=== PATIENT | female | born 1960 | race African-American/Black ===

== ENCOUNTER 2017-10-09 16:20 | Inpatient (IN) ==
[2017-10-09] MEDS ORDERED: SODIUM BICARB INJ 100 MEQ in STERILE WATER INJ 400 ML IV PRN (18:14)
[2017-10-09] MEDS ORDERED: SODIUM PHOSPHATE IV PRN (18:14)
[2017-10-09] MEDS ORDERED: SODIUM CHLORIDE 0.9% IV PRN (18:14)
[2017-10-09] MEDS ORDERED: DEXTROSE 50% 25 GM/50 ML VIAL IV PRN ×2 (18:14)
[2017-10-09] MEDS ORDERED: PNEUMOCOCCAL VACCINE (13 VALENT) 0.5 ML SYRINGE IM ONE (18:19)
[2017-10-09] MEDS ORDERED: LACTULOSE 20 GM/30 ML UDCUP PO PRN (18:20)
[2017-10-09] MEDS ORDERED: MAGNESIUM SULF RIDER 2 GM in PREMIX 1 EACH IV PRN (18:20)
[2017-10-09] MEDS ORDERED: MAGNESIUM SULF RIDER 4 GM in PREMIX 1 EACH IV PRN (18:20)
[2017-10-09] MEDS ORDERED: DOCUSATE SODIUM 100 MG CAPSULE PO PRN (18:20)
[2017-10-09] MEDS ORDERED: GLUCAGON 1 MG VIAL IM PRN (18:20)
[2017-10-09] MEDS ORDERED: INSULIN REGULAR DRIP 100 ML IV SCH (18:30)
[2017-10-09 18:53] LABS: Allen Test Positive
[2017-10-09 18:54] LABS: ABG Base Excess -8.7 MMOL/L (-2.5-2.5); ABG HCO3 17.4 MMOL/L (20-26); ABG Oxygen Saturation 99.6 % (95-100); ABG PH 7.339 (7.35-7.45)
[2017-10-09 18:55] LABS: Basophils % 0.2 % (0.0-0.8); Hematocrit 28.5 VOL% (35.7-47.0); Hemoglobin 8.7 GM/DL (12.0-16.0); Immature Granulocytes % 0.7 %; Immature Granulocytes Absolute 0.14 #; Lymphocytes # 1.2 10*3/uL (1.4-4.0); Lymphocytes % 6.3 % (21.3-54.2); Mean Corpuscular HGB Conc 30.5 GM/DL (32-36); Mean Corpuscular Hemoglobin 24 PG (27-34); Mean Corpuscular Volume 79.8 FL (87-102); Mean Platelet Volume 10.9 FL (9.6-12.0); Monocytes # 0.9 10*3/uL (0.11-0.8); Monocytes % 4.7 % (1.7-12.7); Neutrophils # 17.3 10*3/uL (1.4-7.4); Neutrophils % 88.1 % (38.7-73.9); Platelet Count 466 T/CUMM (130-400); Red Blood Count 3.57 MC/CUMM (3.8-5.5); Red Cell Distribution Width 19.2 % (9.3-17.3); White Blood Count 19.6 T/CUMM (4-12)
[2017-10-09 19:17] LABS: Calcium 8.2 MG/DL (8.5-10.1); Osmolality,Calculated 336.1 MOS/KG (273-304); Potassium 3.4 MMOL/L (3.5-5.1)
[2017-10-09 19:26] LABS: Bilirubin,Total 0.4 MG/DL (0.2-1.0); Calcium 8.3 MG/DL (8.5-10.1); Potassium 3.4 MMOL/L (3.5-5.1); Thyroid Stimulating Hormone 1.19 uIU/ml (0.358-3.74); Total Protein 6.9 G/DL (6.4-8.3)
[2017-10-09] MEDS ORDERED: hydrALAZINE 20 MG/1 ML VIAL IV PRN (19:26)
[2017-10-09 19:30] LABS: Osmolality,Calculated 339.8 MOS/KG (273-304)
[2017-10-09 19:36] LABS: Apearance,Urine Slightly Hazy (Clear); Bacteria,Urine Occasional /HPF (Few); Bilirubin,Urine Negative (Negative); Blood, Urine Negative (Negative); Glucose,Urine (UA) >=500 mg/dL (Negative); Ketones,Urine 20 mg/dL (Negative); Mucus,Urine Occasional /LPF (Occasional); Nitrite,Urine Negative (Negative); Protein,Urine Negative; Urine Color Yellow (Yellow); Urine Urobilinogen < 2.0 EU/DL (0.2-1.0); WBC,Urine 2 /HPF (0-6)
[2017-10-09] MEDS: PANTOPRAZOLE 40 MG VIAL IV SCH (20:32)
[2017-10-09] MEDS: INSULIN LISPRO 100 UNIT/ML SUBCUT SCH (20:32)
[2017-10-09 22:55] LABS: Calcium 8.1 MG/DL (8.5-10.1); Osmolality,Calculated 331.5 MOS/KG (273-304); Potassium 3.6 MMOL/L (3.5-5.1)
[2017-10-09] MEDS ORDERED: INSULIN REGULAR 100 UNIT/ML IV ONE (23:30)
[2017-10-10 02:29] LABS: Calcium 8.5 MG/DL (8.5-10.1); Osmolality,Calculated 325.6 MOS/KG (273-304); Potassium 3.3 MMOL/L (3.5-5.1)
[2017-10-10] MEDS ORDERED: INSULIN REGULAR 100 UNIT/ML IV ONE (03:00)
[2017-10-10] MEDS: POTASSIUM CHLORIDE RIDER 10 MEQ in PREMIX 1 EACH IV PRN ×4 (03:26→06:19)
[2017-10-10 05:31] LABS: Basophils % 0.2 % (0.0-0.8); Hematocrit 28.3 VOL% (35.7-47.0); Hemoglobin 9.3 GM/DL (12.0-16.0); Immature Granulocytes % 0.9 %; Immature Granulocytes Absolute 0.19 #; Lymphocytes # 0.8 10*3/uL (1.4-4.0); Lymphocytes % 3.7 % (21.3-54.2); Mean Corpuscular HGB Conc 32.9 GM/DL (32-36); Mean Corpuscular Hemoglobin 25 PG (27-34); Mean Corpuscular Volume 75.3 FL (87-102); Mean Platelet Volume 10.9 FL (9.6-12.0); Monocytes # 2.3 10*3/uL (0.11-0.8); Monocytes % 10.5 % (1.7-12.7); Neutrophils # 18.9 10*3/uL (1.4-7.4); Neutrophils % 84.7 % (38.7-73.9); Platelet Count 461 T/CUMM (130-400); Red Blood Count 3.76 MC/CUMM (3.8-5.5); Red Cell Distribution Width 18.7 % (9.3-17.3); White Blood Count 22.3 T/CUMM (4-12)
[2017-10-10 05:53] LABS: Risk Ratio 2.06; VLDL CHOLESTEROL 23.8 MG/DL
[2017-10-10 06:09] LABS: Band Neutrophils 2 % (0-10); Lymphocytes 3 % (20-55); Segmented Neutrophils 86 % (50-85); Total Cells Counted 100
[2017-10-10 06:10] LABS: Hypochromasia 1+
[2017-10-10 06:11] LABS: Microcytosis 1+; Platelet Estimate Increased; Target Cells Slight
[2017-10-10 07:09] LABS: Calcium 8.5 MG/DL (8.5-10.1); Osmolality,Calculated 315.4 MOS/KG (273-304); Potassium 3.7 MMOL/L (3.5-5.1)
[2017-10-10] MEDS: SODIUM CHLORIDE 0.9% 1,000 ML IV SCH ×3 (07:42→21:52)
[2017-10-10] MEDS: glipiZIDE 10 MG TABLET PO SCH ×2 (08:25→16:47)
[2017-10-10] MEDS: INSULIN LISPRO 100 UNIT/ML SUBCUT SCH ×6 (08:25→23:20)
[2017-10-10] MEDS: PANTOPRAZOLE 40 MG VIAL IV SCH ×2 (08:26→21:52)
[2017-10-10] MEDS ORDERED: PANTOPRAZOLE 40 MG TABLET PO SCH (09:00)
[2017-10-10] MEDS ORDERED: SODIUM CHLORIDE 0.45% 1,000 ML IV SCH (11:15)
[2017-10-10] MEDS: ONDANSETRON 4 MG/2 ML VIAL IV PRN (14:36)
[2017-10-10] MEDS: ACETAMINOPHEN 325 MG TABLET PO PRN (21:52)
[2017-10-11] MEDS: INSULIN LISPRO 100 UNIT/ML SUBCUT SCH ×6 (03:30→20:51)
[2017-10-11 05:15] LABS: Basophils % 0.1 % (0.0-0.8); Eosinophils % 0.1 % (0.00-10.9); Hematocrit 25.6 VOL% (35.7-47.0); Hemoglobin 7.9 GM/DL (12.0-16.0); Immature Granulocytes % 0.5 %; Immature Granulocytes Absolute 0.05 #; Lymphocytes # 1.4 10*3/uL (1.4-4.0); Lymphocytes % 12.4 % (21.3-54.2); Mean Corpuscular HGB Conc 30.9 GM/DL (32-36); Mean Corpuscular Hemoglobin 24 PG (27-34); Mean Corpuscular Volume 78.8 FL (87-102); Monocytes # 0.7 10*3/uL (0.11-0.8); Monocytes % 6.6 % (1.7-12.7); NRBC # 0.02 10*3/uL; Neutrophils # 8.8 10*3/uL (1.4-7.4); Neutrophils % 80.3 % (38.7-73.9); Platelet Count 336 T/CUMM (130-400); Red Blood Count 3.25 MC/CUMM (3.8-5.5); Red Cell Distribution Width 18.7 % (9.3-17.3)
[2017-10-11 05:39] LABS: Calcium 8.1 MG/DL (8.5-10.1); Osmolality,Calculated 299.4 MOS/KG (273-304); Potassium 3.3 MMOL/L (3.5-5.1)
[2017-10-11] MEDS: SODIUM CHLORIDE 0.9% 1,000 ML IV SCH ×3 (05:40→14:15)
[2017-10-11 05:44] LABS: Troponin I Only 0.055 NG/ML (0.00-0.045)
[2017-10-11 06:14] LABS: Microcytosis 1+; Platelet Estimate Normal
[2017-10-11] MEDS: ONDANSETRON 4 MG/2 ML VIAL IV PRN ×2 (06:35→09:57)
[2017-10-11] MEDS ORDERED: ASPIRIN 325 MG TABLET ONE (08:23)
[2017-10-11] MEDS ORDERED: NITROGLYCERIN SL 0.4 MG TABLET SL PRN (08:23)
[2017-10-11] MEDS ORDERED: ASPIRIN CHEW 81 MG TABLET PO ONE (08:23)
[2017-10-11] MEDS ORDERED: NITROGLYCERIN SL 0.4 MG TABLET SL ONE (08:23)
[2017-10-11] MEDS ORDERED: MORPHINE 4 MG/1 ML VIAL IV ONE (08:29)
[2017-10-11 08:46] LABS: Basophils % 0.2 % (0.0-0.8); Eosinophils % 0.1 % (0.00-10.9); Hematocrit 26.8 VOL% (35.7-47.0); Hemoglobin 8.2 GM/DL (12.0-16.0); Immature Granulocytes % 0.5 %; Immature Granulocytes Absolute 0.06 #; Lymphocytes # 1.4 10*3/uL (1.4-4.0); Lymphocytes % 10.9 % (21.3-54.2); Mean Corpuscular HGB Conc 30.6 GM/DL (32-36); Mean Corpuscular Hemoglobin 25 PG (27-34); Mean Corpuscular Volume 80.5 FL (87-102); Mean Platelet Volume 10.3 FL (9.6-12.0); Monocytes # 0.9 10*3/uL (0.11-0.8); Monocytes % 6.6 % (1.7-12.7); Neutrophils # 10.5 10*3/uL (1.4-7.4); Neutrophils % 81.7 % (38.7-73.9); Platelet Count 341 T/CUMM (130-400); Red Blood Count 3.33 MC/CUMM (3.8-5.5); Red Cell Distribution Width 18.9 % (9.3-17.3); White Blood Count 12.8 T/CUMM (4-12)
[2017-10-11 09:13] LABS: Band Neutrophils 3 % (0-10); Hypochromasia 1+; Lymphocytes 14 % (20-55); Segmented Neutrophils 76 % (50-85); Total Cells Counted 100
[2017-10-11 09:14] LABS: Microcytosis 1+; Platelet Estimate Normal
[2017-10-11 09:16] LABS: Albumin 2.4 G/DL (3.4-5.0); Bilirubin,Total 0.4 MG/DL (0.2-1.0); Calcium 8.1 MG/DL (8.5-10.1); Osmolality,Calculated 294.4 MOS/KG (273-304); Potassium 3.4 MMOL/L (3.5-5.1); Total Protein 6.1 G/DL (6.4-8.3)
[2017-10-11 09:50] LABS: Troponin I Only 0.05 NG/ML (0.00-0.045)
[2017-10-11] MEDS: glipiZIDE 10 MG TABLET PO SCH ×2 (09:57→16:36)
[2017-10-11] MEDS: POTASSIUM CHLORIDE 20 MEQ TABLET PO SCH ×3 (09:58→16:36)
[2017-10-11] MEDS: PANTOPRAZOLE 40 MG VIAL IV SCH (09:59)
[2017-10-11] MEDS: POTASSIUM CHLORIDE RIDER 10 MEQ in PREMIX 1 EACH IV PRN ×3 (10:05→12:57)
[2017-10-11] MEDS: ALUMINUM/MAGNES/SIMETH MAX STR 30 ML UDCUP PO SCH ×3 (14:06→20:50)
[2017-10-11] MEDS: PANTOPRAZOLE 40 MG TABLET PO SCH ×2 (14:06→20:50)
[2017-10-11] MEDS: ACETAMINOPHEN 325 MG TABLET PO PRN (18:42)
[2017-10-12] MEDS: INSULIN LISPRO 100 UNIT/ML SUBCUT SCH ×5 (00:07→23:31)
[2017-10-12] MEDS: ALUMINUM/MAGNES/SIMETH MAX STR 30 ML UDCUP PO SCH (00:07)
[2017-10-12 05:45] LABS: Calcium 8.4 MG/DL (8.5-10.1); Osmolality,Calculated 286.6 MOS/KG (273-304); Potassium 4.4 MMOL/L (3.5-5.1); Troponin I Only 0.024 NG/ML (0.00-0.045)
[2017-10-12] MEDS: SODIUM CHLORIDE 0.9% 1,000 ML IV SCH ×2 (07:40→21:30)
[2017-10-12] MEDS: PANTOPRAZOLE 40 MG TABLET PO SCH (08:36)
[2017-10-12] MEDS: glipiZIDE 10 MG TABLET PO SCH ×2 (08:36→16:29)
[2017-10-12] MEDS ORDERED: IBUPROFEN 100 MG/5 ML UDCUP PO SCH (09:00)
[2017-10-12] MEDS ORDERED: hydroCHLOROthiazide 25 MG TABLET PO SCH (09:00)
[2017-10-12] MEDS ORDERED: ACETAMINOPHEN 325 MG TABLET PO PRN (09:22)
[2017-10-12] MEDS ORDERED: ALUM/MAG/SIMETH/LIDO VISC 1:1 30 ML BOTTLE PO ONE (09:27)
[2017-10-12] MEDS ORDERED: IBUPROFEN 100 MG/5 ML UDCUP PO ONE (10:00)
[2017-10-12 13:17] LABS: Barbiturates Screen,Urine Negative (Negative); Benzodiazepines Screen,Urine Negative (Negative); Cannabinoid Screen,Urine Negative (Negative); Opiate Screen,Urine Negative (Negative); Phencyclidine Screen,Urine Negative (Negative)
[2017-10-12] MEDS: INSULIN GLARGINE 100 UNIT/ML SUBCUT SCH (13:24)
[2017-10-12] MEDS: amLODIPine 5 MG TABLET PO SCH (13:25)
[2017-10-12] MEDS ORDERED: LOPERAMIDE 2 MG CAPSULE PO ONE (18:46)
[2017-10-12] MEDS ORDERED: PANTOPRAZOLE 40 MG VIAL IV SCH (21:00)
[2017-10-12] MEDS: ALUM/MAG/SIMETH/LIDO VISC 1:1 30 ML BOTTLE PO PRN (23:37)
[2017-10-13] MEDS ORDERED: ZALEPLON 5 MG CAPSULE PO PRN (00:39)
[2017-10-13 09:55] LABS: Basophils % 0.2 % (0.0-0.8); Eosinophils # 0.1 10*3/uL (0.0-0.87); Eosinophils % 1.6 % (0.00-10.9); Hemoglobin 8.6 GM/DL (12.0-16.0); Immature Granulocytes % 0.2 %; Immature Granulocytes Absolute 0.02 #; Lymphocytes # 1.6 10*3/uL (1.4-4.0); Lymphocytes % 18.2 % (21.3-54.2); Mean Corpuscular HGB Conc 29.7 GM/DL (32-36); Mean Corpuscular Hemoglobin 24 PG (27-34); Mean Corpuscular Volume 81.9 FL (87-102); Mean Platelet Volume 11.1 FL (9.6-12.0); Monocytes # 0.4 10*3/uL (0.11-0.8); Monocytes % 4.9 % (1.7-12.7); Neutrophils # 6.5 10*3/uL (1.4-7.4); Neutrophils % 74.9 % (38.7-73.9); Platelet Count 372 T/CUMM (130-400); Red Blood Count 3.54 MC/CUMM (3.8-5.5); Red Cell Distribution Width 18.9 % (9.3-17.3); White Blood Count 8.6 T/CUMM (4-12)
[2017-10-13] MEDS: ONDANSETRON 4 MG/2 ML VIAL IV PRN ×2 (10:01→16:24)
[2017-10-13] MEDS: INSULIN LISPRO 100 UNIT/ML SUBCUT SCH ×4 (10:03→22:41)
[2017-10-13] MEDS: INSULIN GLARGINE 100 UNIT/ML SUBCUT SCH (10:03)
[2017-10-13] MEDS: amLODIPine 5 MG TABLET PO SCH (10:03)
[2017-10-13] MEDS: glipiZIDE 10 MG TABLET PO SCH ×2 (10:03→16:24)
[2017-10-13 10:30] LABS: Alanine Aminotransferase 40 U/L (13-56); Albumin 2.5 G/DL (3.4-5.0); Alkaline Phosphatase 95 U/L (45-117); Aspartate Amino Transferase 40 U/L (0-37); Bilirubin,Total < 0.39 MG/DL (0.2-1.0); Blood Urea Nitrogen 11 MG/DL (7-18); Glucose 147 MG/DL (74-106); Osmolality,Calculated 282.3 MOS/KG (273-304); Potassium 4.4 MMOL/L (3.5-5.1); Sodium 141 MMOL/L (136-145); Total Protein 6.7 G/DL (6.4-8.3)
[2017-10-13 10:47] LABS: Band Neutrophils 1 % (0-10); Eosinophils 2 % (0-10); Lymphocytes 12 % (20-55); Segmented Neutrophils 83 % (50-85); Total Cells Counted 100
[2017-10-13 10:48] LABS: Giant Platelets Few; Hypochromasia 2+; Microcytosis 1+; Platelet Estimate Normal
[2017-10-13] MEDS ORDERED: ASPIRIN CHEW 81 MG TABLET PO ONE (12:02)
[2017-10-13] MEDS: ALUM/MAG/SIMETH/LIDO VISC 1:1 30 ML BOTTLE PO PRN (12:06)
[2017-10-13] MEDS ORDERED: LIDOCAINE 100 MG/5 ML SYRINGE ONE (12:57)
[2017-10-13] MEDS ORDERED: PROPOFOL 200 MG/20 ML VIAL IV ONE (12:57)
[2017-10-13] MEDS: PANTOPRAZOLE 40 MG TABLET PO SCH (23:10)
[2017-10-14] MEDS: SODIUM CHLORIDE 0.9% 1,000 ML IV SCH (04:18)
[2017-10-14 05:17] LABS: Basophils % 0.1 % (0.0-0.8); Eosinophils # 0.1 10*3/uL (0.0-0.87); Eosinophils % 1.3 % (0.00-10.9); Hematocrit 24.8 VOL% (35.7-47.0); Hemoglobin 7.4 GM/DL (12.0-16.0); Immature Granulocytes % 0.3 %; Immature Granulocytes Absolute 0.03 #; Lymphocytes # 1.8 10*3/uL (1.4-4.0); Lymphocytes % 17.6 % (21.3-54.2); Mean Corpuscular HGB Conc 29.8 GM/DL (32-36); Mean Corpuscular Hemoglobin 24 PG (27-34); Mean Corpuscular Volume 81.3 FL (87-102); Mean Platelet Volume 10.9 FL (9.6-12.0); Monocytes # 0.7 10*3/uL (0.11-0.8); Monocytes % 6.6 % (1.7-12.7); Neutrophils # 7.7 10*3/uL (1.4-7.4); Neutrophils % 74.1 % (38.7-73.9); Platelet Count 331 T/CUMM (130-400); Red Blood Count 3.05 MC/CUMM (3.8-5.5); Red Cell Distribution Width 18.7 % (9.3-17.3); White Blood Count 10.3 T/CUMM (4-12)
[2017-10-14 05:41] LABS: Hypochromasia 1+; Microcytosis Slight; Ovalocytes Slight; Platelet Estimate Adequate
[2017-10-14 05:51] LABS: Albumin 2.2 G/DL (3.4-5.0); Bilirubin,Total 0.4 MG/DL (0.2-1.0); Calcium 8.3 MG/DL (8.5-10.1); Osmolality,Calculated 280.3 MOS/KG (273-304); Potassium 4.2 MMOL/L (3.5-5.1); Total Protein 5.7 G/DL (6.4-8.3)
[2017-10-14] MEDS: PANTOPRAZOLE 40 MG TABLET PO SCH (06:42)
[2017-10-14] MEDS: glipiZIDE 10 MG TABLET PO SCH ×2 (08:41→17:56)
[2017-10-14] MEDS: amLODIPine 5 MG TABLET PO SCH (08:41)
[2017-10-14] MEDS: INSULIN GLARGINE 100 UNIT/ML SUBCUT SCH (08:43)
[2017-10-14] MEDS: INSULIN LISPRO 100 UNIT/ML SUBCUT SCH ×4 (08:43→21:17)
[2017-10-14] MEDS: ONDANSETRON 4 MG/2 ML VIAL IV PRN ×3 (08:47→17:08)
[2017-10-14 09:41] LABS: Basophils % 0.1 % (0.0-0.8); Eosinophils # 0.1 10*3/uL (0.0-0.87); Eosinophils % 1.5 % (0.00-10.9); Hemoglobin 7.3 GM/DL (12.0-16.0); Immature Granulocytes % 0.5 %; Immature Granulocytes Absolute 0.04 #; Lymphocytes # 1.8 10*3/uL (1.4-4.0); Lymphocytes % 21.1 % (21.3-54.2); Mean Corpuscular HGB Conc 30.4 GM/DL (32-36); Mean Corpuscular Hemoglobin 25 PG (27-34); Mean Corpuscular Volume 81.9 FL (87-102); Mean Platelet Volume 11.4 FL (9.6-12.0); Monocytes # 0.6 10*3/uL (0.11-0.8); Monocytes % 7.2 % (1.7-12.7); Neutrophils % 69.6 % (38.7-73.9); Platelet Count 341 T/CUMM (130-400); Red Blood Count 2.93 MC/CUMM (3.8-5.5); Red Cell Distribution Width 18.8 % (9.3-17.3); White Blood Count 8.6 T/CUMM (4-12)
[2017-10-14 09:54] LABS: Hypochromasia 1+; Platelet Estimate Adequate
[2017-10-14 09:56] LABS: Microcytosis Slight
[2017-10-14 09:59] LABS: Giant Platelets Few
[2017-10-14] MEDS ORDERED: SODIUM PHOSPHATE INJ 30 MMOL in SODIUM CHLORIDE 0.9% 250 ML IV ONE (10:00)
[2017-10-14] MEDS ORDERED: PROMETHAZINE INJ 25 MG in SODIUM CHLORIDE 0.9% 50 ML IV PRN (19:49)
[2017-10-14] MEDS: METOCLOPRAMIDE 10 MG/2 ML VIAL IV SCH (21:17)
[2017-10-14] MEDS: PANTOPRAZOLE 40 MG VIAL IV SCH (21:17)
[2017-10-15] MEDS: SODIUM CHLORIDE 0.9% 1,000 ML IV SCH (00:34)
[2017-10-15] MEDS: PANTOPRAZOLE 40 MG TABLET PO SCH (00:34)
[2017-10-15] MEDS ORDERED: BISMUTH SUBSALICYLATE 30 ML/524 MG 240 ML/BOTTLE PO PRN (03:23)
[2017-10-15] MEDS: METOCLOPRAMIDE 10 MG/2 ML VIAL IV SCH ×4 (03:40→20:44)
[2017-10-15] MEDS ORDERED: SODIUM CHLORIDE 0.9% 1,000 ML IV PRN (07:07)
[2017-10-15 08:25] LABS: Basophils % 0.3 % (0.0-0.8); Eosinophils # 0.2 10*3/uL (0.0-0.87); Eosinophils % 1.5 % (0.00-10.9); Hematocrit 23.9 VOL% (35.7-47.0); Hemoglobin 7.2 GM/DL (12.0-16.0); Immature Granulocytes % 0.7 %; Immature Granulocytes Absolute 0.07 #; Lymphocytes # 2.2 10*3/uL (1.4-4.0); Lymphocytes % 21.5 % (21.3-54.2); Mean Corpuscular HGB Conc 30.1 GM/DL (32-36); Mean Corpuscular Hemoglobin 25 PG (27-34); Mean Corpuscular Volume 81.8 FL (87-102); Mean Platelet Volume 11.6 FL (9.6-12.0); Monocytes % 9.2 % (1.7-12.7); NRBC # 0.02 10*3/uL; Neutrophils % 66.8 % (38.7-73.9); Platelet Count 398 T/CUMM (130-400); Red Blood Count 2.92 MC/CUMM (3.8-5.5); Red Cell Distribution Width 19.1 % (9.3-17.3); White Blood Count 10.4 T/CUMM (4-12)
[2017-10-15] MEDS: PANTOPRAZOLE 40 MG VIAL IV SCH ×2 (08:41→20:44)
[2017-10-15] MEDS: ONDANSETRON 4 MG/2 ML VIAL IV PRN ×2 (08:42→16:40)
[2017-10-15] MEDS: INSULIN GLARGINE 100 UNIT/ML SUBCUT SCH (08:43)
[2017-10-15] MEDS: glipiZIDE 10 MG TABLET PO SCH (08:43)
[2017-10-15] MEDS: amLODIPine 5 MG TABLET PO SCH (08:44)
[2017-10-15] MEDS: INSULIN LISPRO 100 UNIT/ML SUBCUT SCH ×4 (08:44→22:08)
[2017-10-15] MEDS: ALUM/MAG/SIMETH/LIDO VISC 1:1 30 ML BOTTLE PO PRN (18:39)
[2017-10-15 19:42] LABS: Hematocrit 30.6 VOL% (35.7-47.0); Hemoglobin 9.6 GM/DL (12.0-16.0)
[2017-10-15] MEDS ORDERED: hydrALAZINE 20 MG/1 ML VIAL IV PRN (23:16)
[2017-10-16] MEDS: METOCLOPRAMIDE 10 MG/2 ML VIAL IV SCH (04:42)
[2017-10-16 05:51] LABS: Basophils % 0.4 % (0.0-0.8); Eosinophils # 0.2 10*3/uL (0.0-0.87); Eosinophils % 1.9 % (0.00-10.9); Hematocrit 28.8 VOL% (35.7-47.0); Hemoglobin 9.3 GM/DL (12.0-16.0); Immature Granulocytes % 1.8 %; Immature Granulocytes Absolute 0.15 #; Lymphocytes # 2.5 10*3/uL (1.4-4.0); Mean Corpuscular HGB Conc 32.3 GM/DL (32-36); Mean Corpuscular Hemoglobin 25 PG (27-34); Mean Corpuscular Volume 78.3 FL (87-102); Mean Platelet Volume 11.4 FL (9.6-12.0); Monocytes # 0.9 10*3/uL (0.11-0.8); Monocytes % 10.2 % (1.7-12.7); Neutrophils # 4.9 10*3/uL (1.4-7.4); Neutrophils % 56.7 % (38.7-73.9); Platelet Count 418 T/CUMM (130-400); Red Blood Count 3.68 MC/CUMM (3.8-5.5); Red Cell Distribution Width 18.4 % (9.3-17.3); White Blood Count 8.6 T/CUMM (4-12)
[2017-10-16 06:28] LABS: % Iron Saturation 18.5 % (18-50)
[2017-10-16 06:31] LABS: Albumin 2.2 G/DL (3.4-5.0); Bilirubin,Total 0.6 MG/DL (0.2-1.0); Calcium 8.7 MG/DL (8.5-10.1); Osmolality,Calculated 281.8 MOS/KG (273-304); Total Protein 6.2 G/DL (6.4-8.3)
[2017-10-16] MEDS: amLODIPine 5 MG TABLET PO SCH (08:31)
[2017-10-16] MEDS: ALUM/MAG/SIMETH/LIDO VISC 1:1 30 ML BOTTLE PO PRN (08:31)
[2017-10-16] MEDS: INSULIN LISPRO 100 UNIT/ML SUBCUT SCH ×4 (08:32→21:32)
[2017-10-16] MEDS: INSULIN GLARGINE 100 UNIT/ML SUBCUT SCH (08:32)
[2017-10-16] MEDS: PANTOPRAZOLE 40 MG VIAL IV SCH ×2 (08:32→21:32)
[2017-10-16] MEDS: ALUM/MAG/SIMETH/LIDO VISC 1:1 30 ML BOTTLE PO SCH ×3 (09:50→17:21)
[2017-10-16] MEDS: METOCLOPRAMIDE 10 MG/10 ML UDCUP PO SCH ×2 (12:20→18:41)
[2017-10-16] MEDS: ONDANSETRON 4 MG/2 ML VIAL IV PRN ×2 (17:18→21:32)
[2017-10-17] MEDS: METOCLOPRAMIDE 10 MG/10 ML UDCUP PO SCH ×3 (00:27→12:30)
[2017-10-17 05:52] LABS: Basophils % 0.3 % (0.0-0.8); Eosinophils # 0.1 10*3/uL (0.0-0.87); Eosinophils % 1.3 % (0.00-10.9); Hematocrit 28.5 VOL% (35.7-47.0); Hemoglobin 8.9 GM/DL (12.0-16.0); Immature Granulocytes % 1.3 %; Immature Granulocytes Absolute 0.12 #; Lymphocytes # 2.6 10*3/uL (1.4-4.0); Lymphocytes % 28.3 % (21.3-54.2); Mean Corpuscular HGB Conc 31.2 GM/DL (32-36); Mean Corpuscular Hemoglobin 25 PG (27-34); Mean Corpuscular Volume 78.7 FL (87-102); Mean Platelet Volume 11.3 FL (9.6-12.0); Monocytes # 1.1 10*3/uL (0.11-0.8); Monocytes % 11.6 % (1.7-12.7); NRBC # 0.02 10*3/uL; Neutrophils # 5.3 10*3/uL (1.4-7.4); Neutrophils % 57.2 % (38.7-73.9); Platelet Count 490 T/CUMM (130-400); Red Blood Count 3.62 MC/CUMM (3.8-5.5); Red Cell Distribution Width 18.5 % (9.3-17.3); White Blood Count 9.2 T/CUMM (4-12)
[2017-10-17 06:09] LABS: Albumin 2.3 G/DL (3.4-5.0); Bilirubin,Total 0.6 MG/DL (0.2-1.0); Calcium 9.1 MG/DL (8.5-10.1); Osmolality,Calculated 288.8 MOS/KG (273-304); Potassium 4.7 MMOL/L (3.5-5.1); Total Protein 6.4 G/DL (6.4-8.3)
[2017-10-17] MEDS: INSULIN GLARGINE 100 UNIT/ML SUBCUT SCH (09:38)
[2017-10-17] MEDS: INSULIN LISPRO 100 UNIT/ML SUBCUT SCH ×2 (09:40→12:30)
[2017-10-17] MEDS: ALUM/MAG/SIMETH/LIDO VISC 1:1 30 ML BOTTLE PO SCH ×2 (09:41→12:30)
[2017-10-17] MEDS: PANTOPRAZOLE 40 MG VIAL IV SCH (09:42)
[2017-10-17] MEDS: amLODIPine 5 MG TABLET PO SCH (10:35)
[2017-10-17 12:10] VITALS: BP 152/87
== END 2017-10-17 12:30 | disposition home or self-care (01) | DRG 420 ==
LOC: SUATTDRO 17:35 → N.CC 17:35 → SUATTDRO 18:12 → N.2E 10-10 19:55
PROVIDERS: ADMIT Internal Medicine; ATTEND Internal Medicine

== ENCOUNTER 2018-02-01 08:16 | Inpatient (IN) ==
[2018-02-01] MEDS ORDERED: SODIUM CHLORIDE 0.9% 2,000 ML IV STA (08:37)
[2018-02-01] MEDS ORDERED: ONDANSETRON 4 MG/2 ML VIAL IV STA (08:37)
[2018-02-01 08:49] LABS: Basophils # 0.1 10*3/uL (0.0-0.2); Basophils % 0.3 % (0.0-0.8); Eosinophils % 0.1 % (0.00-10.9); Hematocrit 36.7 VOL% (35.7-47.0); Hemoglobin 11.5 GM/DL (12.0-16.0); Immature Granulocytes % 4.6 %; Lymphocytes # 2.4 10*3/uL (1.4-4.0); Lymphocytes % 13.6 % (21.3-54.2); Mean Corpuscular HGB Conc 31.3 GM/DL (32-36); Mean Corpuscular Hemoglobin 27 PG (27-34); Mean Corpuscular Volume 84.6 FL (87-102); Mean Platelet Volume 11.3 FL (9.6-12.0); Monocytes # 0.6 10*3/uL (0.11-0.8); Monocytes % 3.4 % (1.7-12.7); Neutrophils # 13.5 10*3/uL (1.4-7.4); Platelet Count 549 T/CUMM (130-400); Red Blood Count 4.34 MC/CUMM (3.8-5.5); Red Cell Distribution Width 17.1 % (9.3-17.3); White Blood Count 17.3 T/CUMM (4-12)
[2018-02-01 09:07] LABS: Albumin 3.5 G/DL (3.4-5.0); Bilirubin,Total 0.6 MG/DL (0.2-1.0); Calcium 9.8 MG/DL (8.5-10.1); Osmolality,Calculated 313.5 MOS/KG (273-304); Potassium 4.8 MMOL/L (3.5-5.1); Total Protein 8.5 G/DL (6.4-8.3)
[2018-02-01 09:08] LABS: Band Neutrophils 3 % (0-10); Hypochromasia 1+; Lymphocytes 14 % (20-55); Platelet Estimate Increased; Segmented Neutrophils 80 % (50-85); Total Cells Counted 100
[2018-02-01] MEDS ORDERED: INSULIN REGULAR 100 UNIT/ML ONE (09:15)
[2018-02-01] MEDS ORDERED: INSULIN REGULAR 100 UNIT/ML IV STA (09:19)
[2018-02-01] MEDS ORDERED: SODIUM PHOSPHATE INJ 13 MMOL in SODIUM CHLORIDE 0.9% 250 ML IV PRN (09:38)
[2018-02-01] MEDS ORDERED: SODIUM BICARB INJ 100 MEQ in STERILE WATER INJ 400 ML IV PRN (09:38)
[2018-02-01] MEDS ORDERED: MAGNESIUM SULF RIDER 4 GM in PREMIX 1 EACH IV PRN (09:38)
[2018-02-01] MEDS ORDERED: SODIUM CHLORIDE 0.9% 1,000 ML IV ONE (09:38)
[2018-02-01] MEDS ORDERED: DEXTROSE 50% 25 GM/50 ML VIAL IV PRN ×2 (09:38)
[2018-02-01] MEDS ORDERED: INSULIN REGULAR 100 UNIT/ML IV ONE (09:38)
[2018-02-01] MEDS ORDERED: MAGNESIUM SULF RIDER 2 GM in PREMIX 1 EACH IV PRN (09:38)
[2018-02-01] MEDS ORDERED: CEFTAROLINE 600 MG in SODIUM CHLORIDE 0.9% 100 ML IV STA (09:40)
[2018-02-01 09:55] LABS: Apearance,Urine CLEAR (Clear); Bilirubin,Urine Negative (Negative); Blood, Urine Small mg/dL (Negative); Glucose,Urine (UA) >=500 mg/dL (Negative); Hyaline Casts,Urine 2 /LPF (0-3); Ketones,Urine 20 mg/dL (Negative); Nitrite,Urine Negative (Negative); Protein,Urine 100 MG/DL; RBC,Urine 4 /HPF (0-4); Squamous Epithelial Cell,Urine Occasional /HPF (0-10); Urine Color Yellow (Yellow); Urine Urobilinogen < 2.0 EU/DL (0.2-1.0); WBC,Urine 1 /HPF (0-6)
[2018-02-01 10:00] LABS: ABG Base Excess -11.2 MMOL/L (-2.5-2.5); ABG HCO3 15.5 MMOL/L (20-26); ABG Oxygen Saturation 97.5 % (95-100); ABG PCO2 27.7 MM HG (35-48); ABG PH 7.312 (7.35-7.45); ABG TCO2 13.1 MMOL/L (23-27)
[2018-02-01] MEDS ORDERED: INSULIN REGULAR DRIP 100 ML IV SCH (10:00)
[2018-02-01 10:02] LABS: Barbiturates Screen,Urine Negative (Negative); Benzodiazepines Screen,Urine Negative (Negative); Cannabinoid Screen,Urine Positive (Negative); Opiate Screen,Urine Negative (Negative); Phencyclidine Screen,Urine Negative (Negative)
[2018-02-01] MEDS ORDERED: ENOXAPARIN 40 MG/0.4 ML SYRINGE ONE (11:05)
[2018-02-01] MEDS: PANTOPRAZOLE 40 MG VIAL IV SCH (11:15)
[2018-02-01 11:34] LABS: Calcium 9.1 MG/DL (8.5-10.1); Osmolality,Calculated 317.7 MOS/KG (273-304)
[2018-02-01] MEDS ORDERED: SODIUM CHLORIDE 0.9% 1,000 ML IV SCH ×2 (12:00→14:38)
[2018-02-01] MEDS: ENOXAPARIN 30 MG/0.3 ML SYRINGE SUBCUT SCH (12:09)
[2018-02-01 13:20] LABS: ABG Base Excess -2.3 MMOL/L (-2.5-2.5); ABG HCO3 22.5 MMOL/L (20-26); ABG Oxygen Saturation 96.5 % (95-100); ABG PCO2 38.1 MM HG (35-48); ABG PH 7.379 (7.35-7.45); ABG PO2 93.1 MM HG (80-95); ABG TCO2 20.7 MMOL/L (23-27)
[2018-02-01 14:01] LABS: Calcium 8.6 MG/DL (8.5-10.1); Osmolality,Calculated 311.3 MOS/KG (273-304); Potassium 3.8 MMOL/L (3.5-5.1)
[2018-02-01] MEDS ORDERED: INSULIN REGULAR 100 UNIT/ML IV PRN (15:52)
[2018-02-01 16:00] LABS: ABG Base Excess -3.4 MMOL/L (-2.5-2.5); ABG HCO3 21.6 MMOL/L (20-26); ABG Oxygen Saturation 96.5 % (95-100); ABG PCO2 37.2 MM HG (35-48); ABG PH 7.369 (7.35-7.45); ABG PO2 94.6 MM HG (80-95); ABG TCO2 19.2 MMOL/L (23-27)
[2018-02-01 18:47] LABS: Calcium 8.6 MG/DL (8.5-10.1); Osmolality,Calculated 303.1 MOS/KG (273-304); Potassium 4.3 MMOL/L (3.5-5.1)
[2018-02-01] MEDS: POTASSIUM CHLORIDE RIDER 10 MEQ in PREMIX 1 EACH IV PRN ×2 (19:32→20:41)
[2018-02-01] MEDS: CEFTAROLINE 400 MG in SODIUM CHLORIDE 0.9% 100 ML IV SCH (20:33)
[2018-02-01] MEDS: hydrALAZINE 20 MG/1 ML VIAL IV PRN (21:23)
[2018-02-01 22:08] LABS: Calcium 8.4 MG/DL (8.5-10.1); Osmolality,Calculated 298.1 MOS/KG (273-304); Potassium 4.7 MMOL/L (3.5-5.1)
[2018-02-01] MEDS: ONDANSETRON 4 MG/2 ML VIAL IV PRN (22:10)
[2018-02-01] MEDS: SODIUM CHLORIDE 0.45% 1,000 ML IV SCH (22:21)
[2018-02-02] MEDS ORDERED: DEXTROSE 5% NACL 0.45% 1,000 ML IV SCH ×2 (00:30→03:00)
[2018-02-02 01:42] LABS: Basophils % 0.1 % (0.0-0.8); Hematocrit 28.9 VOL% (35.7-47.0); Hemoglobin 9.2 GM/DL (12.0-16.0); Immature Granulocytes % 0.7 %; Immature Granulocytes Absolute 0.14 #; Lymphocytes # 1.5 10*3/uL (1.4-4.0); Lymphocytes % 6.8 % (21.3-54.2); Mean Corpuscular HGB Conc 31.8 GM/DL (32-36); Mean Corpuscular Hemoglobin 26 PG (27-34); Mean Corpuscular Volume 82.8 FL (87-102); Monocytes # 1.1 10*3/uL (0.11-0.8); Monocytes % 5.2 % (1.7-12.7); Neutrophils # 18.7 10*3/uL (1.4-7.4); Neutrophils % 87.2 % (38.7-73.9); Platelet Count 545 T/CUMM (130-400); Red Blood Count 3.49 MC/CUMM (3.8-5.5); Red Cell Distribution Width 17.2 % (9.3-17.3); White Blood Count 21.4 T/CUMM (4-12)
[2018-02-02 01:59] LABS: Osmolality,Calculated 295.1 MOS/KG (273-304)
[2018-02-02] MEDS: POTASSIUM CHLORIDE RIDER 10 MEQ in PREMIX 1 EACH IV PRN ×2 (02:11→03:15)
[2018-02-02 02:16] LABS: Band Neutrophils 4 % (0-10); Lymphocytes 11 % (20-55); Platelet Estimate Increased; Segmented Neutrophils 79 % (50-85); Total Cells Counted 100
[2018-02-02] MEDS: ONDANSETRON 4 MG/2 ML VIAL IV PRN ×2 (02:58→07:09)
[2018-02-02] MEDS: SODIUM CHLORIDE 0.45% 1,000 ML IV SCH ×4 (03:15→19:56)
[2018-02-02] MEDS: INSULIN REGULAR 100 UNIT/ML SUBCUT SCH ×2 (03:53→09:01)
[2018-02-02] MEDS ORDERED: INSULIN REGULAR 100 UNIT/ML SUBCUT SCH (04:00)
[2018-02-02] MEDS: hydrALAZINE 20 MG/1 ML VIAL IV PRN (06:17)
[2018-02-02 08:37] LABS: Osmolality,Calculated 290.7 MOS/KG (273-304); Potassium 4.6 MMOL/L (3.5-5.1)
[2018-02-02] MEDS ORDERED: PROMETHAZINE 25 MG/1 ML VIAL IM ONE (08:58)
[2018-02-02] MEDS: PANTOPRAZOLE 40 MG VIAL IV SCH ×2 (09:02→20:27)
[2018-02-02] MEDS: ENOXAPARIN 30 MG/0.3 ML SYRINGE SUBCUT SCH (09:02)
[2018-02-02] MEDS ORDERED: DEXTROSE 50% 25 GM/50 ML VIAL IV PRN (09:31)
[2018-02-02] MEDS ORDERED: GLUCAGON 1 MG VIAL IM PRN (09:31)
[2018-02-02] MEDS ORDERED: PROMETHAZINE 25 MG TABLET PO PRN (09:32)
[2018-02-02] MEDS: CEFTAROLINE 400 MG in SODIUM CHLORIDE 0.9% 100 ML IV SCH ×2 (09:35→20:27)
[2018-02-02] MEDS ORDERED: SODIUM PHOSPHATE INJ 15 MMOL in SODIUM CHLORIDE 0.9% 250 ML IV ONE (11:00)
[2018-02-02] MEDS: INSULIN LISPRO 100 UNIT/ML SUBCUT SCH ×3 (13:14→20:26)
[2018-02-02 14:37] LABS: Calcium 8.2 MG/DL (8.5-10.1); Osmolality,Calculated 287.4 MOS/KG (273-304); Potassium 4.1 MMOL/L (3.5-5.1)
[2018-02-02] MEDS: PROMETHAZINE 25 MG/1 ML VIAL IM PRN ×2 (14:51→20:28)
[2018-02-02 17:33] LABS: Albumin 2.5 G/DL (3.4-5.0); Bilirubin,Direct 0.1 MG/DL (0.0-0.20); Bilirubin,Indirect 0.3 MG/DL (0.0-1.0); Bilirubin,Total 0.4 MG/DL (0.2-1.0); Total Protein 6.3 G/DL (6.4-8.3)
[2018-02-03] MEDS: INSULIN LISPRO 100 UNIT/ML SUBCUT SCH ×6 (00:49→21:02)
[2018-02-03] MEDS: SODIUM CHLORIDE 0.45% 1,000 ML IV SCH ×3 (03:52→22:50)
[2018-02-03 05:10] LABS: Basophils % 0.2 % (0.0-0.8); Eosinophils % 0.2 % (0.00-10.9); Hematocrit 29.1 VOL% (35.7-47.0); Immature Granulocytes % 0.5 %; Immature Granulocytes Absolute 0.07 #; Lymphocytes # 1.7 10*3/uL (1.4-4.0); Lymphocytes % 12.7 % (21.3-54.2); Mean Corpuscular HGB Conc 30.9 GM/DL (32-36); Mean Corpuscular Hemoglobin 26 PG (27-34); Mean Corpuscular Volume 83.6 FL (87-102); Mean Platelet Volume 10.4 FL (9.6-12.0); Monocytes # 0.5 10*3/uL (0.11-0.8); Monocytes % 3.7 % (1.7-12.7); Neutrophils % 82.7 % (38.7-73.9); Platelet Count 513 T/CUMM (130-400); Red Blood Count 3.48 MC/CUMM (3.8-5.5); Red Cell Distribution Width 17.2 % (9.3-17.3); White Blood Count 13.3 T/CUMM (4-12)
[2018-02-03 05:54] LABS: Calcium 8.3 MG/DL (8.5-10.1); Osmolality,Calculated 277.8 MOS/KG (273-304); Potassium 3.6 MMOL/L (3.5-5.1)
[2018-02-03] MEDS: PROMETHAZINE 25 MG/1 ML VIAL IM PRN (06:02)
[2018-02-03] MEDS: POTASSIUM CHLORIDE RIDER 10 MEQ in PREMIX 1 EACH IV PRN (06:26)
[2018-02-03] MEDS ORDERED: PANTOPRAZOLE 40 MG TABLET PO SCH (09:00)
[2018-02-03] MEDS: ENOXAPARIN 40 MG/0.4 ML SYRINGE SUBCUT SCH (09:15)
[2018-02-03] MEDS: CEFTAROLINE 400 MG in SODIUM CHLORIDE 0.9% 100 ML IV SCH ×2 (09:15→21:02)
[2018-02-03] MEDS: PANTOPRAZOLE 40 MG VIAL IV SCH ×2 (09:16→21:02)
[2018-02-03] MEDS: ONDANSETRON 4 MG/2 ML VIAL IV PRN (09:16)
[2018-02-03] MEDS: METOCLOPRAMIDE 10 MG/2 ML VIAL IV SCH (17:52)
[2018-02-04] MEDS: INSULIN LISPRO 100 UNIT/ML SUBCUT SCH ×6 (00:43→20:58)
[2018-02-04] MEDS: METOCLOPRAMIDE 10 MG/2 ML VIAL IV SCH ×2 (00:44→06:24)
[2018-02-04] MEDS: SODIUM CHLORIDE 0.45% 1,000 ML IV SCH ×3 (07:17→17:31)
[2018-02-04] MEDS: PANTOPRAZOLE 40 MG TABLET PO SCH ×2 (09:01→18:00)
[2018-02-04] MEDS: CEFTAROLINE 600 MG in SODIUM CHLORIDE 0.9% 100 ML IV SCH ×2 (09:01→20:52)
[2018-02-04] MEDS: METOCLOPRAMIDE 10 MG/10 ML UDCUP PO SCH ×4 (09:01→20:52)
[2018-02-04] MEDS: ENOXAPARIN 40 MG/0.4 ML SYRINGE SUBCUT SCH (09:02)
[2018-02-04] MEDS ORDERED: BISMUTH SUBSALICYLATE 30 ML/524 MG 240 ML/BOTTLE PO PRN (16:47)
[2018-02-05] MEDS: INSULIN LISPRO 100 UNIT/ML SUBCUT SCH ×4 (00:42→13:33)
[2018-02-05] MEDS: SODIUM CHLORIDE 0.45% 1,000 ML IV SCH ×2 (02:49→12:04)
[2018-02-05 05:35] LABS: Basophils % 0.3 % (0.0-0.8); Eosinophils % 1.4 % (0.00-10.9); Hematocrit 24.5 VOL% (35.7-47.0); Hemoglobin 7.6 GM/DL (12.0-16.0); Immature Granulocytes % 0.3 %; Lymphocytes % 38.1 % (21.3-54.2); Mean Corpuscular Hemoglobin 26 PG (27-34); Mean Corpuscular Volume 83.3 FL (87-102); Mean Platelet Volume 10.8 FL (9.6-12.0); Monocytes % 6.3 % (1.7-12.7); Neutrophils % 53.6 % (38.7-73.9); Platelet Count 432 T/CUMM (130-400); Red Blood Count 2.94 MC/CUMM (3.8-5.5); Red Cell Distribution Width 17.3 % (9.3-17.3); White Blood Count 7.9 T/CUMM (4-12)
[2018-02-05 05:36] LABS: Eosinophils # 0.1 10*3/uL (0.0-0.87); Immature Granulocytes Absolute 0.02 #; Monocytes # 0.5 10*3/uL (0.11-0.8); Neutrophils # 4.2 10*3/uL (1.4-7.4)
[2018-02-05] MEDS: PANTOPRAZOLE 40 MG TABLET PO SCH (06:00)
[2018-02-05] MEDS: METOCLOPRAMIDE 10 MG/10 ML UDCUP PO SCH ×2 (08:49→12:12)
[2018-02-05] MEDS: ENOXAPARIN 40 MG/0.4 ML SYRINGE SUBCUT SCH (08:49)
[2018-02-05] MEDS: CEFTAROLINE 600 MG in SODIUM CHLORIDE 0.9% 100 ML IV SCH (08:50)
[2018-02-05] MEDS ORDERED: ALUM/MAG/SIMETH/LIDO VISC 1:1 30 ML BOTTLE PO ONE (09:30)
[2018-02-05 11:31] VITALS: BP 119/64
== END 2018-02-05 15:59 | disposition home health service (06) | DRG 420 ==
LOC: EDUNIT# → EDBD → N.ED 08:16 → N.EDINP 09:38 → SUATTDRO 09:38 → N.CC 11:04 → N.2E 02-03 22:38
PROVIDERS: ADMIT Internal Medicine; ATTEND Internal Medicine Geriatric Medicine

== ENCOUNTER 2018-10-27 16:31 | Inpatient (IN) ==
[2018-10-27] MEDS ORDERED: ASPIRIN 325 MG TABLET PO STA (16:51)
[2018-10-27] MEDS ORDERED: ONDANSETRON 4 MG/2 ML VIAL IV STA (16:51)
[2018-10-27] MEDS ORDERED: INSULIN REGULAR 100 UNIT/ML IV STA ×2 (16:53→18:42)
[2018-10-27 16:58] LABS: Basophils % 0.4 % (0.0-0.8); Eosinophils % 0.8 % (0.00-10.9); Hematocrit 31.1 VOL% (35.7-47.0); Hemoglobin 9.2 GM/DL (12.0-16.0); Immature Granulocytes % 0.2 %; Immature Granulocytes Absolute 0.01 #; Lymphocytes % 19.6 % (21.3-54.2); Mean Corpuscular HGB Conc 29.6 GM/DL (32-36); Mean Corpuscular Volume 83.8 FL (87-102); Mean Platelet Volume 10.9 FL (9.6-12.0); Monocytes % 4.5 % (1.7-12.7); Neutrophils % 74.5 % (38.7-73.9); Platelet Count 393 T/CUMM (130-400); Red Blood Count 3.71 MC/CUMM (3.8-5.5); White Blood Count 5.3 T/CUMM (4-12)
[2018-10-27 17:04] LABS: INR 0.9; PT Patient Result 9.9 SECS
[2018-10-27 17:25] LABS: Albumin 3.1 G/DL (3.4-5.0); Bilirubin,Total 0.4 MG/DL (0.2-1.0); Calcium 8.5 MG/DL (8.5-10.1); Osmolality,Calculated 301.8 MOS/KG (273-304); Total Protein 6.1 G/DL (6.4-8.3)
[2018-10-27 18:31] LABS: Apearance,Urine CLEAR (Clear); Bilirubin,Urine Negative (Negative); Blood, Urine Negative (Negative); Glucose,Urine (UA) >=500 mg/dL (Negative); Ketones,Urine 5 mg/dL (Negative); Nitrite,Urine Negative (Negative); Protein,Urine 30 MG/DL; RBC,Urine 2 /HPF (0-4); Squamous Epithelial Cell,Urine Occasional /HPF (0-10); Urine Color Colorless (Yellow); Urine Specific Gravity 1.026 (1.001-1.035); Urine Urobilinogen < 2.0 EU/DL (0.2-1.0); WBC,Urine 10 /HPF (0-6)
[2018-10-27] MEDS ORDERED: MAGNESIUM SULF RIDER 4 GM in PREMIX 1 EACH IV PRN (19:51)
[2018-10-27] MEDS ORDERED: SODIUM BICARB INJ 100 MEQ in STERILE WATER INJ 400 ML IV PRN (19:51)
[2018-10-27] MEDS ORDERED: DEXTROSE 50% 25 GM/50 ML VIAL IV PRN ×3 (19:51)
[2018-10-27] MEDS ORDERED: SODIUM CHLORIDE 0.9% 1,000 ML IV ONE (19:51)
[2018-10-27] MEDS ORDERED: SODIUM CHLORIDE 0.9% IV PRN (19:51)
[2018-10-27] MEDS ORDERED: GLUCAGON 1 MG VIAL IM PRN (19:51)
[2018-10-27] MEDS ORDERED: POTASSIUM CHLORIDE RIDER 10 MEQ in PREMIX 1 EACH IV PRN (19:51)
[2018-10-27] MEDS ORDERED: MAGNESIUM SULF RIDER 2 GM in PREMIX 1 EACH IV PRN (19:51)
[2018-10-27] MEDS ORDERED: SODIUM PHOSPHATE IV PRN (19:51)
[2018-10-27] MEDS ORDERED: INSULIN REGULAR DRIP 100 ML IV SCH (20:00)
[2018-10-27] MEDS ORDERED: hydrALAZINE 20 MG/1 ML VIAL IV PRN (20:02)
[2018-10-27] MEDS ORDERED: LABETALOL 20 MG/4 ML SYRINGE IV PRN (20:03)
[2018-10-27] MEDS: ENOXAPARIN 40 MG/0.4 ML SYRINGE SUBCUT SCH (21:42)
[2018-10-27 21:54] LABS: Apearance,Urine CLEAR (Clear); Bilirubin,Urine Negative (Negative); Blood, Urine Negative (Negative); Glucose,Urine (UA) >=500 mg/dL (Negative); Ketones,Urine 5 mg/dL (Negative); Nitrite,Urine Negative (Negative); Protein,Urine 30 MG/DL; RBC,Urine 1 /HPF (0-4); Squamous Epithelial Cell,Urine Occasional /HPF (0-10); Urine Color Straw (Yellow); Urine Specific Gravity 1.024 (1.001-1.035); Urine Urobilinogen < 2.0 EU/DL (0.2-1.0)
[2018-10-27] MEDS: SODIUM CHLORIDE 0.9% 1,000 ML IV SCH (22:23)
[2018-10-27 22:35] LABS: Basophils % 0.1 % (0.0-0.8); Eosinophils % 0.6 % (0.00-10.9); Hematocrit 29.4 VOL% (35.7-47.0); Hemoglobin 8.8 GM/DL (12.0-16.0); Immature Granulocytes % 0.3 %; Immature Granulocytes Absolute 0.02 #; Lymphocytes # 2.2 10*3/uL (1.4-4.0); Lymphocytes % 32.5 % (21.3-54.2); Mean Corpuscular HGB Conc 29.9 GM/DL (32-36); Mean Corpuscular Volume 83.3 FL (87-102); Mean Platelet Volume 11.2 FL (9.6-12.0); Monocytes % 5.8 % (1.7-12.7); Neutrophils % 60.7 % (38.7-73.9); Platelet Count 400 T/CUMM (130-400); Red Blood Count 3.53 MC/CUMM (3.8-5.5); White Blood Count 6.9 T/CUMM (4-12)
[2018-10-27] MEDS ORDERED: NITROGLYCERIN SL 0.4 MG TABLET SL PRN (22:38)
[2018-10-27 23:00] LABS: Barbiturates Screen,Urine Negative (Negative); Benzodiazepines Screen,Urine Negative (Negative); Cannabinoid Screen,Urine Negative (Negative); Opiate Screen,Urine Negative (Negative); Phencyclidine Screen,Urine Negative (Negative)
[2018-10-27 23:08] LABS: Calcium 8.6 MG/DL (8.5-10.1); Osmolality,Calculated 289.1 MOS/KG (273-304)
[2018-10-27 23:13] LABS: Troponin I 0.042 NG/ML (0.00-0.045)
[2018-10-27] MEDS: CARVEDILOL 12.5 MG TABLET PO SCH (23:35)
[2018-10-28] MEDS ORDERED: SODIUM CHLORIDE 0.9% 1,000 ML IV SCH (00:51)
[2018-10-28] MEDS ORDERED: DEXTROSE 5% NACL 0.9% 1,000 ML IV SCH (01:00)
[2018-10-28 01:01] LABS: Calcium 7.9 MG/DL (8.5-10.1)
[2018-10-28] MEDS ORDERED: DEXTROSE 50% 25 GM/50 ML VIAL IV PRN ×2 (01:40→08:42)
[2018-10-28] MEDS ORDERED: GLUCAGON 1 MG VIAL IM PRN ×2 (01:40→08:42)
[2018-10-28] MEDS: INSULIN REGULAR 100 UNIT/ML SUBCUT SCH ×6 (01:52→21:30)
[2018-10-28 03:37] LABS: Basophils % 0.1 % (0.0-0.8); Eosinophils # 0.1 10*3/uL (0.0-0.87); Eosinophils % 1.5 % (0.00-10.9); Hematocrit 28.1 VOL% (35.7-47.0); Hemoglobin 8.1 GM/DL (12.0-16.0); Immature Granulocytes % 0.3 %; Immature Granulocytes Absolute 0.02 #; Lymphocytes # 2.6 10*3/uL (1.4-4.0); Lymphocytes % 38.2 % (21.3-54.2); Mean Corpuscular HGB Conc 28.8 GM/DL (32-36); Mean Corpuscular Volume 85.7 FL (87-102); Monocytes % 5.4 % (1.7-12.7); Neutrophils % 54.5 % (38.7-73.9); Platelet Count 366 T/CUMM (130-400); Red Blood Count 3.28 MC/CUMM (3.8-5.5); Red Cell Distribution Width 17.2 % (9.3-17.3); White Blood Count 6.7 T/CUMM (4-12)
[2018-10-28] MEDS: SODIUM CHLORIDE 0.9% 1,000 ML IV SCH (03:39)
[2018-10-28] MEDS ORDERED: LOPERAMIDE 2 MG CAPSULE PO ONE (03:46)
[2018-10-28 03:51] LABS: Calcium 8.1 MG/DL (8.5-10.1); Osmolality,Calculated 286.8 MOS/KG (273-304)
[2018-10-28 04:16] LABS: Troponin I 0.045 NG/ML (0.00-0.045)
[2018-10-28] MEDS: POTASSIUM CHLORIDE RIDER 20 MEQ in PREMIX 1 EACH IV PRN ×2 (04:16→06:19)
[2018-10-28 05:06] LABS: Anisocytosis 1+; Macrocytosis 1+; Microcytosis 1+; Polychromasia Slight
[2018-10-28 05:07] LABS: Platelet Estimate Normal
[2018-10-28 08:25] LABS: Osmolality,Calculated 283.3 MOS/KG (273-304)
[2018-10-28] MEDS: CARVEDILOL 12.5 MG TABLET PO SCH ×2 (08:35→21:31)
[2018-10-28] MEDS: LEVOFLOXACIN INJ 500 MG in PREMIX 1 EACH IV SCH (08:35)
[2018-10-28] MEDS: ASPIRIN 325 MG TABLET PO SCH (08:35)
[2018-10-28] MEDS: LISINOPRIL 10 MG TABLET PO SCH (08:35)
[2018-10-28] MEDS: POTASSIUM CHLORIDE 20 MEQ TABLET PO SCH ×3 (09:44→16:13)
[2018-10-28] MEDS ORDERED: SODIUM CHLORIDE 0.45% 1,000 ML IV SCH (12:51)
[2018-10-28] MEDS: INSULIN NPH 100 UNIT/ML SUBCUT SCH (16:13)
[2018-10-28] MEDS ORDERED: ROSUVASTATIN 10 MG TABLET PO SCH (21:00)
[2018-10-28] MEDS: ENOXAPARIN 40 MG/0.4 ML SYRINGE SUBCUT SCH (21:31)
[2018-10-29] MEDS ORDERED: ACETAMINOPHEN 325 MG TABLET PO PRN (03:34)
[2018-10-29 05:23] LABS: Calcium 8.9 MG/DL (8.5-10.1); Osmolality,Calculated 284.7 MOS/KG (273-304)
[2018-10-29 06:01] LABS: Risk Ratio 3.88; VLDL CHOLESTEROL 50.4 MG/DL
[2018-10-29] MEDS: LEVOFLOXACIN INJ 500 MG in PREMIX 1 EACH IV SCH (08:29)
[2018-10-29] MEDS: ASPIRIN 325 MG TABLET PO SCH (08:30)
[2018-10-29] MEDS: LISINOPRIL 10 MG TABLET PO SCH (08:30)
[2018-10-29] MEDS: CARVEDILOL 12.5 MG TABLET PO SCH (08:30)
[2018-10-29] MEDS: INSULIN REGULAR 100 UNIT/ML SUBCUT SCH ×3 (08:46→17:35)
[2018-10-29] MEDS: INSULIN NPH 100 UNIT/ML SUBCUT SCH ×2 (08:47→18:56)
[2018-10-29 16:24] VITALS: BP 149/84
== END 2018-10-29 18:16 | disposition home or self-care (01) | DRG 420 ==
LOC: EDUNIT# → EDBD → N.ED 16:31 → SUATTDRO 19:48 → N.EDINP 19:48 → N.CC 20:29 → N.2E 10-28 18:05
PROVIDERS: ADMIT Internal Medicine; ATTEND Internal Medicine

== ENCOUNTER 2020-06-12 16:41 | Inpatient (IN) ==
[2020-06-12 17:39] LABS: Basophils % 0.4 % (0.0-0.8); Eosinophils # 0.1 10*3/uL (0.0-0.87); Eosinophils % 1.2 % (0.00-10.9); Hematocrit 30.5 VOL% (35.7-47.0); Immature Granulocytes % 0.3 %; Immature Granulocytes Absolute 0.03 #; Lymphocytes # 1.7 10*3/uL (1.4-4.0); Lymphocytes % 18.6 % (21.3-54.2); Mean Corpuscular HGB Conc 29.5 GM/DL (32-36); Mean Corpuscular Volume 86.4 FL (87-102); Mean Platelet Volume 10.7 FL (9.6-12.0); Neutrophils % 73.5 % (38.7-73.9); Platelet Count 403 T/CUMM (130-400); Red Blood Count 3.53 MC/CUMM (3.8-5.5); Red Cell Distribution Width 16.6 % (9.3-17.3); White Blood Count 9.4 T/CUMM (4-12)
[2020-06-12 17:51] LABS: INR 0.9; PT Patient Result 9.9 SECS (9.8-11.9); Partial Thromboplastin Time 27.5 SECS (23.9-33.8)
[2020-06-12 17:53] LABS: Alanine Aminotransferase 44 U/L (13-56); Albumin 2.4 G/DL (3.4-5.0); Alkaline Phosphatase 120 U/L (45-117); Aspartate Amino Transferase 69 U/L (0-37); Bilirubin,Total < 0.39 MG/DL (0.2-1.0); Blood Urea Nitrogen 21 MG/DL (7-18); Calcium 7.9 MG/DL (8.5-10.1); Carbon Dioxide 27 MMOL/L (21-32); Estimated Glom Filtration Rate 38 ML/MIN; Glucose 474 MG/DL (74-106); Osmolality,Calculated 289.4 MOS/KG (273-304); Potassium 3.9 MMOL/L (3.5-5.1); Sodium 133 MMOL/L (136-145); Total Protein 6.2 G/DL (6.4-8.3)
[2020-06-12 17:54] LABS: Troponin I 0.052 NG/ML (0.00-0.045)
[2020-06-12] MEDS ORDERED: SODIUM CHLORIDE 0.9% 1,000 ML IV STA (17:59)
[2020-06-12] MEDS ORDERED: INSULIN REGULAR 100 UNIT/ML SUBCUT STA (17:59)
[2020-06-12 19:38] LABS: Barbiturates Screen,Urine Negative (Negative); Benzodiazepines Screen,Urine Negative (Negative); Cannabinoid Screen,Urine Negative (Negative); Opiate Screen,Urine Negative (Negative); Phencyclidine Screen,Urine Negative (Negative)
[2020-06-12] MEDS ORDERED: GLUCAGON 1 MG VIAL IM PRN ×2 (19:53)
[2020-06-12] MEDS ORDERED: DEXTROSE 50% 25 GM/50 ML VIAL IV PRN (19:53)
[2020-06-12 20:19] LABS: Risk Ratio 2.5; VLDL CHOLESTEROL 64.6 MG/DL
[2020-06-12] MEDS ORDERED: FLUCONAZOLE INJ 100 MG in IV BAG 1 EACH IV SCH (21:00)
[2020-06-12] MEDS ORDERED: INSULIN GLARGINE 100 UNIT/ML SUBCUT SCH (21:00)
[2020-06-12] MEDS: DEXTROSE 5% NACL 0.9% 1,000 ML IV SCH (21:34)
[2020-06-12] MEDS: INSULIN LISPRO 100 UNIT/ML SUBCUT SCH (21:35)
[2020-06-12] MEDS: ENOXAPARIN 30 MG/0.3 ML SYRINGE SUBCUT SCH (21:36)
[2020-06-12] MEDS: ASPIRIN EC 81 MG TABLET PO SCH (21:37)
[2020-06-13 05:18] LABS: Basophils % 0.3 % (0.0-0.8); Eosinophils # 0.1 10*3/uL (0.0-0.87); Hemoglobin 7.8 GM/DL (12.0-16.0); Immature Granulocytes % 0.3 %; Immature Granulocytes Absolute 0.02 #; Lymphocytes % 28.3 % (21.3-54.2); Monocytes % 6.7 % (1.7-12.7); Neutrophils % 62.4 % (38.7-73.9); Platelet Count 359 T/CUMM (130-400); Red Blood Count 3.06 MC/CUMM (3.8-5.5); Red Cell Distribution Width 16.3 % (9.3-17.3)
[2020-06-13 05:40] LABS: Calcium 7.9 MG/DL (8.5-10.1); Osmolality,Calculated 288.5 MOS/KG (273-304); Thyroid Stimulating Hormone 1.06 uIU/ml (0.358-3.74)
[2020-06-13] MEDS ORDERED: MORPHINE 4 MG/1 ML VIAL IV ONE (06:42)
[2020-06-13] MEDS: DEXTROSE 5% NACL 0.9% 1,000 ML IV SCH ×2 (07:05→17:42)
[2020-06-13] MEDS: INSULIN LISPRO 100 UNIT/ML SUBCUT SCH ×4 (09:30→21:14)
[2020-06-13] MEDS: PANTOPRAZOLE 40 MG TABLET PO SCH (09:31)
[2020-06-13] MEDS: ASPIRIN EC 81 MG TABLET PO SCH (09:31)
[2020-06-13 11:50] LABS: % Iron Saturation 9.5 % (18-50)
[2020-06-13 12:01] LABS: Folate 7.4 NG/ML (5.38-24.0)
[2020-06-13] MEDS: CIPROFLOXACIN INJ 200 MG in PREMIX 1 EACH IV SCH (13:40)
[2020-06-13] MEDS: INSULIN GLARGINE 100 UNIT/ML SUBCUT SCH ×2 (13:48→21:13)
[2020-06-13] MEDS: metroNIDAZOLE INJ 500 MG in PREMIX 1 EACH IV SCH ×2 (13:49→21:09)
[2020-06-13] MEDS ORDERED: AMOXICILLIN/CLAV 500 MG TABLET PO SCH (15:00)
[2020-06-13] MEDS: ENOXAPARIN 30 MG/0.3 ML SYRINGE SUBCUT SCH (21:13)
[2020-06-14] MEDS: CIPROFLOXACIN INJ 200 MG in PREMIX 1 EACH IV SCH ×2 (00:22→17:50)
[2020-06-14] MEDS ORDERED: POLYETHYLENE GLYCOL POWDER 17 GM PACK PO PRN (02:18)
[2020-06-14] MEDS: metroNIDAZOLE INJ 500 MG in PREMIX 1 EACH IV SCH ×3 (02:34→21:03)
[2020-06-14] MEDS: DEXTROSE 5% NACL 0.9% 1,000 ML IV SCH ×2 (06:19)
[2020-06-14 08:42] LABS: Basophils % 0.3 % (0.0-0.8); Eosinophils # 0.2 10*3/uL (0.0-0.87); Eosinophils % 2.6 % (0.00-10.9); Hematocrit 26.2 VOL% (35.7-47.0); Hemoglobin 7.7 GM/DL (12.0-16.0); Immature Granulocytes % 0.3 %; Immature Granulocytes Absolute 0.02 #; Lymphocytes # 2.3 10*3/uL (1.4-4.0); Lymphocytes % 31.7 % (21.3-54.2); Mean Corpuscular HGB Conc 29.4 GM/DL (32-36); Mean Corpuscular Volume 88.5 FL (87-102); Mean Platelet Volume 11.5 FL (9.6-12.0); Monocytes % 6.7 % (1.7-12.7); Neutrophils % 58.4 % (38.7-73.9); Platelet Count 366 T/CUMM (130-400); Red Blood Count 2.96 MC/CUMM (3.8-5.5); Red Cell Distribution Width 16.9 % (9.3-17.3); White Blood Count 7.3 T/CUMM (4-12)
[2020-06-14 08:50] LABS: Calcium 8.6 MG/DL (8.5-10.1); Osmolality,Calculated 282.7 MOS/KG (273-304); Potassium 4.5 MMOL/L (3.5-5.1)
[2020-06-14] MEDS: ASPIRIN EC 81 MG TABLET PO SCH (09:17)
[2020-06-14] MEDS: INSULIN LISPRO 100 UNIT/ML SUBCUT SCH ×4 (09:17→21:02)
[2020-06-14] MEDS: PANTOPRAZOLE 40 MG TABLET PO SCH ×2 (09:17→21:02)
[2020-06-14] MEDS: INSULIN GLARGINE 100 UNIT/ML SUBCUT SCH ×2 (09:18→21:00)
[2020-06-14] MEDS ORDERED: SODIUM CHLORIDE 0.9% 1,000 ML IV PRN (11:25)
[2020-06-14] MEDS ORDERED: SODIUM CHLORIDE 0.9% 1,000 ML IV SCH (11:30)
[2020-06-14] MEDS: BISACODYL 5 MG TABLET PO SCH ×2 (16:19→21:01)
[2020-06-14] MEDS ORDERED: POLYETHYLENE GLYCOL POWDER 255 GM BOTTLE PO ONE (18:00)
[2020-06-14] MEDS ORDERED: MAGNESIUM CITRATE 300 ML BOTTLE PO ONE (21:00)
[2020-06-15] MEDS: CIPROFLOXACIN INJ 200 MG in PREMIX 1 EACH IV SCH ×2 (01:12→13:42)
[2020-06-15] MEDS: DEXTROSE 50% 25 GM/50 ML VIAL IV PRN ×2 (02:54→04:49)
[2020-06-15] MEDS: metroNIDAZOLE INJ 500 MG in PREMIX 1 EACH IV SCH ×2 (03:21→13:42)
[2020-06-15 05:45] LABS: Basophils % 0.2 % (0.0-0.8); Eosinophils # 0.2 10*3/uL (0.0-0.87); Eosinophils % 2.5 % (0.00-10.9); Hematocrit 30.9 VOL% (35.7-47.0); Hemoglobin 9.4 GM/DL (12.0-16.0); Immature Granulocytes % 0.4 %; Immature Granulocytes Absolute 0.03 #; Lymphocytes # 2.3 10*3/uL (1.4-4.0); Lymphocytes % 26.9 % (21.3-54.2); Mean Corpuscular HGB Conc 30.4 GM/DL (32-36); Mean Corpuscular Volume 86.1 FL (87-102); Mean Platelet Volume 10.9 FL (9.6-12.0); Monocytes % 6.5 % (1.7-12.7); Neutrophils % 63.5 % (38.7-73.9); Platelet Count 387 T/CUMM (130-400); Red Blood Count 3.59 MC/CUMM (3.8-5.5); Red Cell Distribution Width 16.3 % (9.3-17.3); White Blood Count 8.4 T/CUMM (4-12)
[2020-06-15 06:09] LABS: Calcium 8.6 MG/DL (8.5-10.1); Osmolality,Calculated 280.1 MOS/KG (273-304)
[2020-06-15] MEDS ORDERED: LACTATED RINGERS 1,000 ML IV SCH (06:30)
[2020-06-15] MEDS: BISACODYL 5 MG TABLET PO SCH (06:36)
[2020-06-15] MEDS ORDERED: DEXTROSE 5% NACL 0.45% 1,000 ML IV SCH (07:30)
[2020-06-15] MEDS ORDERED: propofoL 200 MG/20 ML VIAL IV ONE (07:33)
[2020-06-15] MEDS ORDERED: LIDOCAINE 2% 5 ML VIAL ONE (07:33)
[2020-06-15] MEDS ORDERED: PHENYLEPHRINE 1 MG/10 ML SYRINGE IV ONE (08:08)
[2020-06-15] MEDS: INSULIN LISPRO 100 UNIT/ML SUBCUT SCH ×2 (08:24→13:50)
[2020-06-15] MEDS ORDERED: COLESTIPOL 1 GM TABLET PO SCH (09:00)
[2020-06-15] MEDS: ASPIRIN EC 81 MG TABLET PO SCH (09:19)
[2020-06-15] MEDS: PANTOPRAZOLE 40 MG TABLET PO SCH (09:19)
[2020-06-15] MEDS: INSULIN GLARGINE 100 UNIT/ML SUBCUT SCH (09:19)
[2020-06-15 11:42] VITALS: BP 167/94
== END 2020-06-15 14:24 | disposition home or self-care (01) | DRG 812 ==
LOC: EDBD → EDUNIT# → N.EDINP 16:41 → N.ED 16:41 → N.EDINP 06-13 01:30 → N.TELEN 06-13 02:04 → SUATTDRO 06-14 14:33
PROVIDERS: ADMIT Internal Medicine; ATTEND Emergency Medicine

== ENCOUNTER 2021-01-31 16:57 | Inpatient (IN) ==
[2021-01-31] MEDS ORDERED: SODIUM CHLORIDE 0.9% 1,000 ML IV STA (17:40)
[2021-01-31 18:11] LABS: Basophils % 0.3 % (0.0-0.8); Eosinophils # 0.1 10*3/uL (0.0-0.87); Eosinophils % 0.9 % (0.00-10.9); Hematocrit 26.4 VOL% (35.7-47.0); Hemoglobin 8.3 GM/DL (12.0-16.0); Immature Granulocytes % 0.3 %; Immature Granulocytes Absolute 0.02 #; Lymphocytes % 18.1 % (21.3-54.2); Mean Corpuscular HGB Conc 31.4 GM/DL (32-36); Mean Corpuscular Volume 83.5 FL (87-102); Mean Platelet Volume 10.5 FL (9.6-12.0); Monocytes % 4.7 % (1.7-12.7); Neutrophils % 75.7 % (38.7-73.9); Platelet Count 397 T/CUMM (130-400); Red Blood Count 3.16 MC/CUMM (3.8-5.5); White Blood Count 5.8 T/CUMM (4-12)
[2021-01-31 18:31] LABS: Alanine Aminotransferase 69 U/L (13-56); Albumin 2.8 G/DL (3.4-5.0); Alkaline Phosphatase 117 U/L (45-117); Aspartate Amino Transferase 29 U/L (0-37); Bilirubin,Total < 0.39 MG/DL (0.20-1.00); Blood Urea Nitrogen 22 MG/DL (7-18); Calcium 8.7 MG/DL (8.5-10.1); Carbon Dioxide 29 MMOL/L (21-32); Estimated Glom Filtration Rate 42 ML/MIN; Osmolality,Calculated 296.7 MOS/KG (273-304); Potassium 4.1 MMOL/L (3.5-5.1); Sodium 131 MMOL/L (136-145); Total Protein 6.5 G/DL (6.4-8.2)
[2021-01-31 18:35] LABS: Glucose 666 MG/DL (74-106)
[2021-01-31] MEDS ORDERED: INSULIN REGULAR 100 UNIT/ML IV STA (19:04)
[2021-01-31 19:13] LABS: Bilirubin,Urine Negative (Negative); Blood, Urine Negative (Negative); Glucose,Urine (UA) >=500 mg/dL (Negative); Ketones,Urine Negative (Negative); Mucus,Urine Occasional /LPF (Occasional); Nitrite,Urine Negative (Negative); Protein,Urine 100 MG/DL; RBC,Urine 1 /HPF (0-4); Squamous Epithelial Cell,Urine Occasional /HPF (0-10); Urine Appearance CLEAR (Clear); Urine Color Straw (Yellow); Urine Specific Gravity 1.022 (1.001-1.035); Urine Urobilinogen < 2.0 EU/DL (0.2-1.0)
[2021-01-31 19:25] LABS: Barbiturates Screen,Urine Negative (Negative); Benzodiazepines Screen,Urine Negative (Negative); Cannabinoid Screen,Urine Negative (Negative); Opiate Screen,Urine Negative (Negative); Phencyclidine Screen,Urine Negative (Negative)
[2021-01-31 19:55] LABS: ABG Base Excess 3.8 MMOL/L (-2.5-2.5); ABG HCO3 27.7 MMOL/L (20-26); ABG Oxygen Saturation 93.2 % (95-100); ABG PCO2 49.3 MM HG (35-48); ABG PH 7.384 (7.35-7.45); ABG PO2 69.8 MM HG (80-95); ABG TCO2 27.5 MMOL/L (23-27)
[2021-01-31] MEDS ORDERED: NICOTINE 21 MG/24 HR PATCH TRANSDERM PRN (21:06)
[2021-01-31] MEDS ORDERED: ONDANSETRON 4 MG/2 ML VIAL IV PRN (21:06)
[2021-01-31] MEDS ORDERED: hydrALAZINE 20 MG/1 ML VIAL IV PRN (21:06)
[2021-01-31] MEDS ORDERED: GLUCAGON 1 MG VIAL IM PRN (21:06)
[2021-01-31] MEDS ORDERED: ACETAMINOPHEN 325 MG TABLET PO PRN (21:06)
[2021-01-31] MEDS ORDERED: DEXTROSE 50% 25 GM/50 ML VIAL IV PRN ×2 (21:06)
[2021-01-31] MEDS ORDERED: LORazepam 2 MG/1 ML VIAL IV PRN (21:28)
[2021-01-31] MEDS: ENOXAPARIN 40 MG/0.4 ML SYRINGE SUBCUT SCH (22:34)
[2021-01-31] MEDS: INSULIN GLARGINE 100 UNIT/ML SUBCUT SCH (22:35)
[2021-01-31] MEDS: INSULIN REGULAR 100 UNIT/ML SUBCUT SCH (23:24)
[2021-01-31] MEDS: SODIUM CHLORIDE 0.9% 1,000 ML IV SCH (23:32)
[2021-02-01 01:08] LABS: Basophils % 0.2 % (0.0-0.8); Eosinophils # 0.1 10*3/uL (0.0-0.87); Eosinophils % 1.3 % (0.00-10.9); Hematocrit 27.1 VOL% (35.7-47.0); Hemoglobin 8.5 GM/DL (12.0-16.0); Immature Granulocytes % 0.2 %; Immature Granulocytes Absolute 0.01 #; Lymphocytes # 2.1 10*3/uL (1.4-4.0); Lymphocytes % 32.3 % (21.3-54.2); Mean Corpuscular HGB Conc 31.4 GM/DL (32-36); Mean Corpuscular Volume 83.1 FL (87-102); Mean Platelet Volume 9.8 FL (9.6-12.0); Monocytes % 5.6 % (1.7-12.7); Neutrophils % 60.4 % (38.7-73.9); Platelet Count 398 T/CUMM (130-400); Red Blood Count 3.26 MC/CUMM (3.8-5.5); Red Cell Distribution Width 16.1 % (9.3-17.3); White Blood Count 6.4 T/CUMM (4-12)
[2021-02-01 01:29] LABS: Alanine Aminotransferase 62 U/L (13-56); Albumin 2.7 G/DL (3.4-5.0); Alkaline Phosphatase 106 U/L (45-117); Aspartate Amino Transferase 26 U/L (0-37); Bilirubin,Total < 0.39 MG/DL (0.20-1.00); Blood Urea Nitrogen 20 MG/DL (7-18); Carbon Dioxide 34 MMOL/L (21-32); Estimated Glom Filtration Rate 55 ML/MIN; Glucose 128 MG/DL (74-106); HDL Cholesterol 88 MG/DL (40-60); Osmolality,Calculated 279.7 MOS/KG (273-304); Potassium 3.4 MMOL/L (3.5-5.1); Risk Ratio 2.67; Sodium 138 MMOL/L (136-145); Total Protein 6.1 G/DL (6.4-8.2); Triglycerides 172 MG/DL (2-150); VLDL Cholesterol 34.4 MG/DL
[2021-02-01] MEDS: INSULIN REGULAR 100 UNIT/ML SUBCUT SCH ×6 (02:19→22:03)
[2021-02-01] MEDS ORDERED: POTASSIUM CHLORIDE 20 MEQ TABLET PO PRN (05:01)
[2021-02-01] MEDS: PANTOPRAZOLE 40 MG TABLET PO SCH (09:46)
[2021-02-01] MEDS: SODIUM CHLORIDE 0.9% 1,000 ML IV SCH ×3 (09:46→22:20)
[2021-02-01] MEDS: ASPIRIN EC 81 MG TABLET PO SCH (13:32)
[2021-02-01] MEDS: ENOXAPARIN 40 MG/0.4 ML SYRINGE SUBCUT SCH (20:40)
[2021-02-01] MEDS: INSULIN GLARGINE 100 UNIT/ML SUBCUT SCH (20:41)
[2021-02-01] MEDS ORDERED: INSULIN GLARGINE 100 UNIT/ML SUBCUT SCH (21:00)
[2021-02-02] MEDS: INSULIN REGULAR 100 UNIT/ML SUBCUT SCH ×7 (02:21→23:55)
[2021-02-02] MEDS: SODIUM CHLORIDE 0.9% 1,000 ML IV SCH (04:12)
[2021-02-02 05:40] LABS: Hematocrit 24.1 VOL% (35.7-47.0); Hemoglobin 7.2 GM/DL (12.0-16.0); Mean Corpuscular HGB Conc 29.9 GM/DL (32-36)
[2021-02-02 05:46] LABS: Basophils % 0.3 % (0.0-0.8); Eosinophils # 0.1 10*3/uL (0.0-0.87); Eosinophils % 1.8 % (0.00-10.9); Immature Granulocytes % 0.6 %; Immature Granulocytes Absolute 0.04 #; Lymphocytes # 2.1 10*3/uL (1.4-4.0); Lymphocytes % 31.2 % (21.3-54.2); Mean Platelet Volume 10.5 FL (9.6-12.0); Monocytes % 5.6 % (1.7-12.7); Neutrophils % 60.5 % (38.7-73.9); Platelet Count 347 T/CUMM (130-400); Red Blood Count 2.74 MC/CUMM (3.8-5.5); Red Cell Distribution Width 16.8 % (9.3-17.3); White Blood Count 6.8 T/CUMM (4-12)
[2021-02-02 06:10] LABS: Calcium 8.2 MG/DL (8.5-10.1); Osmolality,Calculated 280.3 MOS/KG (273-304); Potassium 3.6 MMOL/L (3.5-5.1)
[2021-02-02] MEDS ORDERED: LOPERAMIDE 2 MG CAPSULE PO ONE (09:22)
[2021-02-02] MEDS: PANTOPRAZOLE 40 MG TABLET PO SCH (09:24)
[2021-02-02] MEDS: ASPIRIN EC 81 MG TABLET PO SCH (09:24)
[2021-02-02] MEDS: INSULIN GLARGINE 100 UNIT/ML SUBCUT SCH (20:52)
[2021-02-02] MEDS: ENOXAPARIN 40 MG/0.4 ML SYRINGE SUBCUT SCH (20:52)
[2021-02-03] MEDS: INSULIN REGULAR 100 UNIT/ML SUBCUT SCH ×3 (05:24→12:24)
[2021-02-03 05:34] LABS: Basophils % 0.1 % (0.0-0.8); Eosinophils # 0.1 10*3/uL (0.0-0.87); Eosinophils % 1.8 % (0.00-10.9); Hematocrit 26.2 VOL% (35.7-47.0); Hemoglobin 7.8 GM/DL (12.0-16.0); Immature Granulocytes % 0.6 %; Immature Granulocytes Absolute 0.04 #; Lymphocytes # 2.4 10*3/uL (1.4-4.0); Lymphocytes % 33.5 % (21.3-54.2); Mean Corpuscular HGB Conc 29.8 GM/DL (32-36); Mean Platelet Volume 10.7 FL (9.6-12.0); Platelet Count 379 T/CUMM (130-400); Red Blood Count 3.01 MC/CUMM (3.8-5.5); Red Cell Distribution Width 16.9 % (9.3-17.3); White Blood Count 7.2 T/CUMM (4-12)
[2021-02-03 05:53] LABS: Calcium 8.3 MG/DL (8.5-10.1); Osmolality,Calculated 281.4 MOS/KG (273-304); Potassium 4.5 MMOL/L (3.5-5.1)
[2021-02-03] MEDS: ASPIRIN EC 81 MG TABLET PO SCH (08:47)
[2021-02-03] MEDS: PANTOPRAZOLE 40 MG TABLET PO SCH (08:47)
[2021-02-03 12:13] VITALS: BP 142/66
== END 2021-02-03 14:16 | disposition home health service (06) | DRG 896 ==
LOC: EDBD → EDUNIT# → N.ED 16:57 → N.EDINP 21:06 → N.TELES 23:05
PROVIDERS: ADMIT Internal Medicine; ATTEND Internal Medicine

== ENCOUNTER 2021-05-08 17:14 | Inpatient (IN) ==
[2021-05-08] MEDS ORDERED: SODIUM CHLORIDE 0.9% 1,000 ML IV STA ×2 (18:02→18:59)
[2021-05-08] MEDS ORDERED: PANTOPRAZOLE 40 MG VIAL IV STA (18:05)
[2021-05-08 18:28] LABS: ABG Base Excess -11.2 MMOL/L (-2.5-2.5); ABG HCO3 15.6 MMOL/L (20-26); ABG Oxygen Saturation 98.2 % (95-100); ABG PCO2 28.3 MM HG (35-48); ABG PH 7.305 (7.35-7.45); ABG TCO2 12.9 MMOL/L (23-27); Pt O2 Delivery Device Room Air
[2021-05-08 18:55] LABS: Basophils % 0.2 % (0.0-0.8); Hematocrit 34.4 VOL% (35.7-47.0); Hemoglobin 10.5 GM/DL (12.0-16.0); Immature Granulocytes % 1.1 %; Immature Granulocytes Absolute 0.17 #; Lymphocytes % 13.3 % (21.3-54.2); Mean Corpuscular HGB Conc 30.5 GM/DL (32-36); Mean Corpuscular Volume 82.1 FL (87-102); Mean Platelet Volume 11.7 FL (9.6-12.0); Monocytes % 2.6 % (1.7-12.7); Neutrophils % 82.8 % (38.7-73.9); Platelet Count 429 T/CUMM (130-400); Red Blood Count 4.19 MC/CUMM (3.8-5.5); Red Cell Distribution Width 17.8 % (9.3-17.3); White Blood Count 15.3 T/CUMM (4-12)
[2021-05-08 19:03] LABS: Bacteria,Urine Occasional /HPF (Few); Bilirubin,Urine Negative (Negative); Blood, Urine Small mg/dL (Negative); Glucose,Urine (UA) >=500 mg/dL (Negative); Hyaline Casts,Urine 5 /LPF (0-3); Ketones,Urine 20 mg/dL (Negative); Mucus,Urine Occasional /LPF (Occasional); Nitrite,Urine Negative (Negative); Protein,Urine >=500 MG/DL; RBC,Urine <1 /HPF (0-4); Urine Appearance CLEAR (Clear); Urine Color Yellow (Yellow); Urine Specific Gravity 1.024 (1.001-1.035); Urine Urobilinogen < 2.0 EU/DL (<2.0)
[2021-05-08 19:10] LABS: INR 0.9; PT Patient Result 10.6 SECS (10.5-12.0)
[2021-05-08 19:25] LABS: Alanine Aminotransferase 85 U/L (13-56); Alkaline Phosphatase 174 U/L (45-117); Aspartate Amino Transferase 31 U/L (0-37); Blood Urea Nitrogen 44 MG/DL (7-18); Calcium 9.4 MG/DL (8.5-10.1); Carbon Dioxide 15 MMOL/L (21-32); Osmolality,Calculated 337.8 MOS/KG (273-304); Sodium 144 MMOL/L (136-145); Total Protein 6.8 G/DL (6.4-8.2)
[2021-05-08 19:30] LABS: Estimated Glom Filtration Rate 0 ML/MIN; Glucose 836 MG/DL (74-106)
[2021-05-08 19:35] LABS: Barbiturates Screen,Urine Negative (Negative); Benzodiazepines Screen,Urine Negative (Negative); Cannabinoid Screen,Urine Negative (Negative); Opiate Screen,Urine Negative (Negative); Phencyclidine Screen,Urine Negative (Negative)
[2021-05-08] MEDS ORDERED: INSULIN REGULAR 100 UNIT/ML IV ONE ×2 (19:38→20:20)
[2021-05-08] MEDS ORDERED: SODIUM CHLORIDE 0.9% 1,000 ML IV ONE (20:20)
[2021-05-08] MEDS ORDERED: MAGNESIUM SULF RIDER 4 GM/100 ML PREMIX IV PRN (20:20)
[2021-05-08] MEDS ORDERED: SODIUM BICARB INJ 100 MEQ in STERILE WATER INJ 400 ML IV PRN (20:20)
[2021-05-08] MEDS ORDERED: MAGNESIUM SULF RIDER 2 GM/50 ML PREMIX IV PRN (20:20)
[2021-05-08] MEDS ORDERED: DEXTROSE 50% 25 GM/50 ML SYRINGE IV PRN ×2 (20:27)
[2021-05-08] MEDS ORDERED: INSULIN REGULAR DRIP 100 ML IV SCH (20:30)
[2021-05-08 22:35] LABS: ABG Base Excess -9.4 MMOL/L (-2.5-2.5); ABG HCO3 15.8 MMOL/L (20-26); ABG Oxygen Saturation 85.8 % (95-100); ABG PCO2 31.6 MM HG (35-48); ABG PH 7.316 (7.35-7.45); ABG PO2 54.8 MM HG (80-95); ABG TCO2 16.7 MMOL/L (23-27)
[2021-05-08] MEDS: SODIUM CHLORIDE 0.9% 1,000 ML IV SCH (23:19)
[2021-05-09 00:24] LABS: Calcium 6.6 MG/DL (8.5-10.1); Osmolality,Calculated 326.6 MOS/KG (273-304); Potassium 2.9 MMOL/L (3.5-5.1)
[2021-05-09] MEDS: VANCOMYCIN 50 MG/ML 60 ML/BOTTLE PO SCH ×4 (00:51→18:20)
[2021-05-09] MEDS ORDERED: SODIUM CHLORIDE 0.9% 1,000 ML IV SCH (01:30)
[2021-05-09] MEDS: SODIUM CHLORIDE 0.9% 1,000 ML IV SCH (01:56)
[2021-05-09 02:52] LABS: Calcium 7.8 MG/DL (8.5-10.1)
[2021-05-09 02:53] LABS: Bacteria,Urine Occasional /HPF (Few); Bilirubin,Urine Negative (Negative); Blood, Urine Moderate mg/dL (Negative); Glucose,Urine (UA) >=500 mg/dL (Negative); Hyaline Casts,Urine 7 /LPF (0-3); Ketones,Urine 20 mg/dL (Negative); Mucus,Urine Occasional /LPF (Occasional); Nitrite,Urine Negative (Negative); Protein,Urine >=500 MG/DL; RBC,Urine 10 /HPF (0-4); Squamous Epithelial Cell,Urine Occasional /HPF (0-10); Urine Appearance CLEAR (Clear); Urine Color Yellow (Yellow); Urine Specific Gravity 1.022 (1.001-1.035); Urine Urobilinogen < 2.0 EU/DL (<2.0)
[2021-05-09] MEDS: POTASSIUM CHLORIDE RIDER 10 MEQ/100 ML PREMIX IV PRN ×3 (02:55→04:56)
[2021-05-09 04:39] LABS: Basophils % 0.2 % (0.0-0.8); Eosinophils % 0.1 % (0.00-10.9); Hematocrit 27.5 VOL% (35.7-47.0); Hemoglobin 8.4 GM/DL (12.0-16.0); Immature Granulocytes % 0.6 %; Immature Granulocytes Absolute 0.11 #; Lymphocytes # 2.1 10*3/uL (1.4-4.0); Lymphocytes % 10.8 % (21.3-54.2); Mean Corpuscular HGB Conc 30.5 GM/DL (32-36); Mean Corpuscular Volume 81.1 FL (87-102); Mean Platelet Volume 10.4 FL (9.6-12.0); Monocytes % 6.8 % (1.7-12.7); Neutrophils % 81.5 % (38.7-73.9); Platelet Count 376 T/CUMM (130-400); Red Blood Count 3.39 MC/CUMM (3.8-5.5); Red Cell Distribution Width 17.4 % (9.3-17.3); White Blood Count 19.1 T/CUMM (4-12)
[2021-05-09 05:04] LABS: Osmolality,Calculated 321.4 MOS/KG (273-304); Potassium 3.5 MMOL/L (3.5-5.1)
[2021-05-09 09:38] LABS: Calcium 7.9 MG/DL (8.5-10.1); Osmolality,Calculated 307.7 MOS/KG (273-304); Potassium 3.5 MMOL/L (3.5-5.1)
[2021-05-09] MEDS: PANTOPRAZOLE 40 MG VIAL IV SCH ×2 (09:40→20:37)
[2021-05-09] MEDS ORDERED: GLUCAGON 1 MG VIAL IM PRN (10:15)
[2021-05-09] MEDS: SODIUM CHLORIDE 0.45% 1,000 ML IV SCH ×2 (10:30→18:22)
[2021-05-09] MEDS: INSULIN LISPRO 100 UNIT/ML SUBCUT SCH ×3 (11:48→20:37)
[2021-05-09] MEDS: POTASSIUM CHLORIDE 20 MEQ TABLET PO PRN ×2 (11:48→13:58)
[2021-05-09] MEDS ORDERED: SODIUM CHLORIDE 0.45% 1,000 ML IV SCH (13:30)
[2021-05-09] MEDS: carvediloL 25 MG TABLET PO SCH ×2 (13:58→20:36)
[2021-05-09] MEDS: DIAZEPAM 5 MG TABLET PO SCH ×2 (14:36→20:36)
[2021-05-09] MEDS: ROSUVASTATIN 10 MG TABLET PO SCH (20:36)
[2021-05-09] MEDS: MICONAZOLE 100 MG VAG SUPP 7/BOX VAG SCH (20:40)
[2021-05-10] MEDS: VANCOMYCIN 50 MG/ML 60 ML/BOTTLE PO SCH ×5 (00:03→23:41)
[2021-05-10] MEDS: SODIUM CHLORIDE 0.45% 1,000 ML IV SCH ×3 (03:07→17:37)
[2021-05-10 06:36] LABS: Calcium 7.7 MG/DL (8.5-10.1); Osmolality,Calculated 305.3 MOS/KG (273-304); Potassium 4.1 MMOL/L (3.5-5.1)
[2021-05-10 07:12] LABS: Basophils % 0.2 % (0.0-0.8); Eosinophils % 0.3 % (0.00-10.9); Hematocrit 25.1 VOL% (35.7-47.0); Hemoglobin 7.5 GM/DL (12.0-16.0); Immature Granulocytes % 0.4 %; Immature Granulocytes Absolute 0.05 #; Lymphocytes # 1.4 10*3/uL (1.4-4.0); Lymphocytes % 11.8 % (21.3-54.2); Mean Corpuscular HGB Conc 29.9 GM/DL (32-36); Mean Corpuscular Volume 83.4 FL (87-102); Mean Platelet Volume 11.6 FL (9.6-12.0); Monocytes % 5.3 % (1.7-12.7); Red Blood Count 3.01 MC/CUMM (3.8-5.5); Red Cell Distribution Width 18.1 % (9.3-17.3)
[2021-05-10 07:20] LABS: Platelet Count 287 T/CUMM (130-400)
[2021-05-10 07:21] LABS: White Blood Count 11.7 T/CUMM (4-12)
[2021-05-10] MEDS ORDERED: INSULIN REGULAR 100 UNIT/ML SUBCUT ONE (08:51)
[2021-05-10] MEDS: carvediloL 25 MG TABLET PO SCH ×2 (09:10→21:06)
[2021-05-10] MEDS: INSULIN LISPRO 100 UNIT/ML SUBCUT SCH ×4 (09:10→21:08)
[2021-05-10] MEDS: SODIUM BICARBONATE 650 MG TABLET PO SCH ×2 (09:10→21:06)
[2021-05-10] MEDS: DIAZEPAM 5 MG TABLET PO SCH ×2 (09:10→21:06)
[2021-05-10] MEDS: PANTOPRAZOLE 40 MG VIAL IV SCH ×2 (09:10→21:07)
[2021-05-10] MEDS ORDERED: INSULIN LISPRO 100 UNIT/ML SUBCUT ONE (10:55)
[2021-05-10] MEDS: ROSUVASTATIN 10 MG TABLET PO SCH (21:06)
[2021-05-10] MEDS: INSULIN GLARGINE 100 UNIT/ML SUBCUT SCH (21:08)
[2021-05-10] MEDS: MICONAZOLE 100 MG VAG SUPP 7/BOX VAG SCH (21:54)
[2021-05-11] MEDS: SODIUM CHLORIDE 0.45% 1,000 ML IV SCH ×3 (03:03→20:51)
[2021-05-11] MEDS: VANCOMYCIN 50 MG/ML 60 ML/BOTTLE PO SCH ×3 (05:10→18:16)
[2021-05-11 06:31] LABS: Basophils % 0.1 % (0.0-0.8); Eosinophils # 0.1 10*3/uL (0.0-0.87); Eosinophils % 1.4 % (0.00-10.9); Hematocrit 25.8 VOL% (35.7-47.0); Immature Granulocytes % 0.4 %; Immature Granulocytes Absolute 0.03 #; Lymphocytes # 1.8 10*3/uL (1.4-4.0); Lymphocytes % 21.7 % (21.3-54.2); Mean Corpuscular Volume 82.2 FL (87-102); Monocytes % 6.2 % (1.7-12.7); Neutrophils % 70.2 % (38.7-73.9); Platelet Count 271 T/CUMM (130-400); Red Blood Count 3.14 MC/CUMM (3.8-5.5); Red Cell Distribution Width 17.9 % (9.3-17.3); White Blood Count 8.4 T/CUMM (4-12)
[2021-05-11 06:54] LABS: Band Neutrophils 1 % (0-10); Hypochromia 1+; Lymphocytes 21 % (20-55); Microcytosis 1+; Platelet Estimate Adequate; Segmented Neutrophils 72 % (50-85); Total Cells Counted 100
[2021-05-11 06:57] LABS: Calcium 8.8 MG/DL (8.5-10.1); Osmolality,Calculated 295.3 MOS/KG (273-304); Potassium 3.9 MMOL/L (3.5-5.1)
[2021-05-11] MEDS: INSULIN LISPRO 100 UNIT/ML SUBCUT SCH ×4 (08:26→20:27)
[2021-05-11] MEDS: SODIUM BICARBONATE 650 MG TABLET PO SCH ×2 (08:26→20:27)
[2021-05-11] MEDS: carvediloL 25 MG TABLET PO SCH ×2 (08:26→20:27)
[2021-05-11] MEDS: DIAZEPAM 5 MG TABLET PO SCH (08:27)
[2021-05-11] MEDS: PANTOPRAZOLE 40 MG VIAL IV SCH ×2 (10:15→20:27)
[2021-05-11] MEDS ORDERED: DIAZEPAM 2 MG TABLET PO PRN (11:06)
[2021-05-11] MEDS: CHOLESTYRAMINE 4 GM PACK PO SCH (12:48)
[2021-05-11] MEDS: ACETAMINOPHEN 325 MG TABLET PO PRN (17:24)
[2021-05-11] MEDS: ROSUVASTATIN 10 MG TABLET PO SCH (20:27)
[2021-05-11] MEDS: INSULIN GLARGINE 100 UNIT/ML SUBCUT SCH (20:28)
[2021-05-11] MEDS: MICONAZOLE 100 MG VAG SUPP 7/BOX VAG SCH (22:12)
[2021-05-12] MEDS: VANCOMYCIN 50 MG/ML 60 ML/BOTTLE PO SCH ×4 (00:10→17:42)
[2021-05-12] MEDS: SODIUM CHLORIDE 0.45% 1,000 ML IV SCH ×3 (03:01→20:44)
[2021-05-12 05:32] LABS: Basophils % 0.1 % (0.0-0.8); Eosinophils # 0.2 10*3/uL (0.0-0.87); Eosinophils % 1.8 % (0.00-10.9); Hematocrit 25.7 VOL% (35.7-47.0); Hemoglobin 7.8 GM/DL (12.0-16.0); Immature Granulocytes % 0.3 %; Immature Granulocytes Absolute 0.03 #; Lymphocytes # 1.9 10*3/uL (1.4-4.0); Lymphocytes % 19.9 % (21.3-54.2); Mean Corpuscular HGB Conc 30.4 GM/DL (32-36); Mean Corpuscular Volume 83.7 FL (87-102); Mean Platelet Volume 10.5 FL (9.6-12.0); Monocytes % 6.4 % (1.7-12.7); Neutrophils % 71.5 % (38.7-73.9); Platelet Count 248 T/CUMM (130-400); Red Blood Count 3.07 MC/CUMM (3.8-5.5); Red Cell Distribution Width 18.3 % (9.3-17.3); White Blood Count 9.5 T/CUMM (4-12)
[2021-05-12 05:57] LABS: Calcium 8.7 MG/DL (8.5-10.1); Potassium 4.1 MMOL/L (3.5-5.1)
[2021-05-12 06:32] LABS: Band Neutrophils 1 % (0-10); Eosinophils 2 % (0-10); Hypochromia 1+; Lymphocytes 14 % (20-55); Microcytosis 1+; Segmented Neutrophils 78 % (50-85); Tear Drop Cells Slight; Total Cells Counted 100
[2021-05-12 06:33] LABS: Ovalocytes Slight
[2021-05-12] MEDS: SODIUM BICARBONATE 650 MG TABLET PO SCH ×2 (09:23→23:16)
[2021-05-12] MEDS: carvediloL 25 MG TABLET PO SCH ×2 (09:23→23:16)
[2021-05-12] MEDS: CHOLESTYRAMINE 4 GM PACK PO SCH (09:23)
[2021-05-12] MEDS: PANTOPRAZOLE 40 MG VIAL IV SCH ×2 (09:26→23:17)
[2021-05-12] MEDS: INSULIN LISPRO 100 UNIT/ML SUBCUT SCH ×4 (11:37→20:46)
[2021-05-12] MEDS ORDERED: cefTRIAXone 1,000 MG in SODIUM CHLORIDE 0.9% 100 ML IV SCH (12:30)
[2021-05-12] MEDS: ROSUVASTATIN 10 MG TABLET PO SCH (23:15)
[2021-05-12] MEDS: INSULIN GLARGINE 100 UNIT/ML SUBCUT SCH (23:16)
[2021-05-12] MEDS: MICONAZOLE 100 MG VAG SUPP 7/BOX VAG SCH (23:17)
[2021-05-13] MEDS ORDERED: INFLUENZA VIRUS VACCINE 0.5 ML SYRINGE IM ONE (00:01)
[2021-05-13] MEDS: VANCOMYCIN 50 MG/ML 60 ML/BOTTLE PO SCH ×4 (01:11→18:11)
[2021-05-13 07:49] LABS: Basophils % 0.2 % (0.0-0.8); Eosinophils # 0.1 10*3/uL (0.0-0.87); Eosinophils % 1.3 % (0.00-10.9); Hematocrit 26.9 VOL% (35.7-47.0); Immature Granulocytes % 0.5 %; Immature Granulocytes Absolute 0.06 #; Lymphocytes # 1.2 10*3/uL (1.4-4.0); Lymphocytes % 11.1 % (21.3-54.2); Mean Corpuscular HGB Conc 29.7 GM/DL (32-36); Mean Corpuscular Volume 84.3 FL (87-102); Mean Platelet Volume 11.4 FL (9.6-12.0); Monocytes % 6.7 % (1.7-12.7); NRBC # 0.03 10*3/uL; Neutrophils % 80.2 % (38.7-73.9); Platelet Count 290 T/CUMM (130-400); Red Blood Count 3.19 MC/CUMM (3.8-5.5); Red Cell Distribution Width 18.1 % (9.3-17.3); White Blood Count 11.1 T/CUMM (4-12)
[2021-05-13 08:08] LABS: Calcium 8.8 MG/DL (8.5-10.1); Osmolality,Calculated 284.5 MOS/KG (273-304); Potassium 4.2 MMOL/L (3.5-5.1)
[2021-05-13 08:24] LABS: Eosinophils 2 % (0-10); Lymphocytes 10 % (20-55); Segmented Neutrophils 80 % (50-85); Total Cells Counted 100
[2021-05-13 08:25] LABS: Hypochromia 1+; Microcytosis 1+; Platelet Estimate Adequate
[2021-05-13] MEDS ORDERED: amLODIPine 2.5 MG TABLET PO SCH (09:00)
[2021-05-13] MEDS: SODIUM BICARBONATE 650 MG TABLET PO SCH ×2 (09:05→20:56)
[2021-05-13] MEDS: POTASSIUM CHLORIDE 20 MEQ TABLET PO PRN (09:05)
[2021-05-13] MEDS: carvediloL 25 MG TABLET PO SCH ×2 (09:06→20:56)
[2021-05-13] MEDS: ACETAMINOPHEN 325 MG TABLET PO PRN (09:06)
[2021-05-13] MEDS: INSULIN LISPRO 100 UNIT/ML SUBCUT SCH ×4 (09:07→20:57)
[2021-05-13] MEDS: PANTOPRAZOLE 40 MG VIAL IV SCH ×2 (09:08→20:57)
[2021-05-13] MEDS: SODIUM CHLORIDE 0.45% 1,000 ML IV SCH ×2 (17:50→22:33)
[2021-05-13] MEDS: ROSUVASTATIN 10 MG TABLET PO SCH (20:56)
[2021-05-13] MEDS: INSULIN GLARGINE 100 UNIT/ML SUBCUT SCH (20:57)
[2021-05-13] MEDS: MICONAZOLE 100 MG VAG SUPP 7/BOX VAG SCH (20:57)
[2021-05-13] MEDS: CHOLESTYRAMINE 4 GM PACK PO SCH (22:41)
[2021-05-14] MEDS: VANCOMYCIN 50 MG/ML 60 ML/BOTTLE PO SCH ×5 (00:24→23:20)
[2021-05-14] MEDS: hydrALAZINE 20 MG/1 ML VIAL IV PRN ×2 (00:49→18:34)
[2021-05-14 05:46] LABS: Basophils % 0.3 % (0.0-0.8); Eosinophils # 0.2 10*3/uL (0.0-0.87); Eosinophils % 1.3 % (0.00-10.9); Hematocrit 22.7 VOL% (35.7-47.0); Hemoglobin 6.9 GM/DL (12.0-16.0); Immature Granulocytes % 1.1 %; Immature Granulocytes Absolute 0.13 #; Lymphocytes # 1.9 10*3/uL (1.4-4.0); Lymphocytes % 16.4 % (21.3-54.2); Mean Corpuscular HGB Conc 30.4 GM/DL (32-36); Mean Corpuscular Volume 84.1 FL (87-102); Mean Platelet Volume 11.3 FL (9.6-12.0); Monocytes % 8.5 % (1.7-12.7); NRBC # 0.06 10*3/uL; Neutrophils % 72.4 % (38.7-73.9); Platelet Count 283 T/CUMM (130-400); Red Cell Distribution Width 18.2 % (9.3-17.3); White Blood Count 11.4 T/CUMM (4-12)
[2021-05-14 06:04] LABS: Calcium 8.4 MG/DL (8.5-10.1); Osmolality,Calculated 281.7 MOS/KG (273-304); Potassium 4.5 MMOL/L (3.5-5.1)
[2021-05-14 06:15] LABS: Hypochromia 1+; Lymphocytes 15 % (20-55); Microcytosis 1+; Platelet Estimate Adequate; Segmented Neutrophils 79 % (50-85); Total Cells Counted 100
[2021-05-14] MEDS ORDERED: SODIUM CHLORIDE 0.9% 1,000 ML IV PRN (07:11)
[2021-05-14] MEDS: amLODIPine 10 MG TABLET PO SCH (08:59)
[2021-05-14] MEDS: carvediloL 25 MG TABLET PO SCH ×2 (08:59→21:44)
[2021-05-14] MEDS: PANTOPRAZOLE 40 MG VIAL IV SCH ×2 (08:59→21:47)
[2021-05-14] MEDS: SODIUM BICARBONATE 650 MG TABLET PO SCH ×2 (09:00→21:44)
[2021-05-14] MEDS: CHOLESTYRAMINE 4 GM PACK PO SCH ×2 (09:00→21:44)
[2021-05-14] MEDS: INSULIN LISPRO 100 UNIT/ML SUBCUT SCH ×4 (09:40→21:57)
[2021-05-14] MEDS: MENTHOL/ZINC OXIDE OINT 71 GM JAR TOP SCH ×2 (10:57→21:50)
[2021-05-14] MEDS: SODIUM CHLORIDE 0.45% 1,000 ML IV SCH (11:00)
[2021-05-14] MEDS: DESITIN 4OZ/NYSTATIN 15 GRAM MIXTURE PASTE TOP SCH ×2 (14:51→21:50)
[2021-05-14] MEDS ORDERED: ALBUTEROL/IPRATROPIUM 3 ML NEB RESP TX PRN (19:56)
[2021-05-14] MEDS ORDERED: INSULIN GLARGINE 100 UNIT/ML SUBCUT SCH (21:00)
[2021-05-14] MEDS: ROSUVASTATIN 10 MG TABLET PO SCH (21:44)
[2021-05-14] MEDS: MICONAZOLE 100 MG VAG SUPP 7/BOX VAG SCH (21:57)
[2021-05-15] MEDS: VANCOMYCIN 50 MG/ML 60 ML/BOTTLE PO SCH ×3 (05:19→17:35)
[2021-05-15] MEDS ORDERED: ONDANSETRON 4 MG/2 ML VIAL IV PRN (05:25)
[2021-05-15 05:35] LABS: Basophils % 0.4 % (0.0-0.8); Eosinophils # 0.1 10*3/uL (0.0-0.87); Eosinophils % 1.3 % (0.00-10.9); Hematocrit 27.8 VOL% (35.7-47.0); Immature Granulocytes % 2.2 %; Immature Granulocytes Absolute 0.16 #; Lymphocytes # 1.5 10*3/uL (1.4-4.0); Lymphocytes % 20.6 % (21.3-54.2); Mean Corpuscular HGB Conc 30.6 GM/DL (32-36); Mean Corpuscular Volume 84.8 FL (87-102); Mean Platelet Volume 10.9 FL (9.6-12.0); Monocytes % 10.6 % (1.7-12.7); NRBC # 0.14 10*3/uL; Neutrophils % 64.9 % (38.7-73.9); Platelet Count 294 T/CUMM (130-400); Red Blood Count 3.28 MC/CUMM (3.8-5.5); Red Cell Distribution Width 17.3 % (9.3-17.3); White Blood Count 7.4 T/CUMM (4-12)
[2021-05-15 05:42] LABS: Hemoglobin 8.5 GM/DL (12.0-16.0)
[2021-05-15 05:52] LABS: Calcium 8.3 MG/DL (8.5-10.1); Osmolality,Calculated 283.2 MOS/KG (273-304); Potassium 4.9 MMOL/L (3.5-5.1)
[2021-05-15 05:59] LABS: Eosinophils 2 % (0-10); Hypochromia 1+; Lymphocytes 21 % (20-55); Microcytosis 1+; Nucleated Red Blood Cells 3 (0-5); Platelet Estimate Adequate; Segmented Neutrophils 70 % (50-85); Total Cells Counted 100
[2021-05-15] MEDS: SODIUM CHLORIDE 0.45% 1,000 ML IV SCH ×2 (06:38→17:35)
[2021-05-15] MEDS: INSULIN LISPRO 100 UNIT/ML SUBCUT SCH ×7 (07:27→21:22)
[2021-05-15] MEDS: SODIUM BICARBONATE 650 MG TABLET PO SCH ×2 (10:21→21:16)
[2021-05-15] MEDS: amLODIPine 10 MG TABLET PO SCH (10:21)
[2021-05-15] MEDS: DESITIN 4OZ/NYSTATIN 15 GRAM MIXTURE PASTE TOP SCH ×2 (10:21→21:18)
[2021-05-15] MEDS: carvediloL 25 MG TABLET PO SCH ×2 (10:21→21:15)
[2021-05-15] MEDS: MENTHOL/ZINC OXIDE OINT 71 GM JAR TOP SCH ×2 (10:21→21:17)
[2021-05-15] MEDS: CHOLESTYRAMINE 4 GM PACK PO SCH ×2 (10:21→22:29)
[2021-05-15] MEDS: PANTOPRAZOLE 40 MG VIAL IV SCH ×2 (10:48→21:16)
[2021-05-15] MEDS ORDERED: SODIUM CHLORIDE 0.9% 1,000 ML IV ONE (16:46)
[2021-05-15 18:56] LABS: CDT Result Negative (Negative); CDT Specimen Source STOOL
[2021-05-15] MEDS ORDERED: INSULIN GLARGINE 100 UNIT/ML SUBCUT SCH (21:00)
[2021-05-15] MEDS: ROSUVASTATIN 10 MG TABLET PO SCH (21:16)
[2021-05-15] MEDS: MICONAZOLE 100 MG VAG SUPP 7/BOX VAG SCH (21:17)
[2021-05-16] MEDS: VANCOMYCIN 50 MG/ML 60 ML/BOTTLE PO SCH ×4 (00:05→18:09)
[2021-05-16 05:42] LABS: Basophils % 0.1 % (0.0-0.8); Eosinophils # 0.1 10*3/uL (0.0-0.87); Eosinophils % 1.6 % (0.00-10.9); Hematocrit 27.8 VOL% (35.7-47.0); Hemoglobin 8.4 GM/DL (12.0-16.0); Immature Granulocytes % 1.1 %; Immature Granulocytes Absolute 0.09 #; Lymphocytes # 1.9 10*3/uL (1.4-4.0); Lymphocytes % 23.7 % (21.3-54.2); Mean Corpuscular HGB Conc 30.2 GM/DL (32-36); Mean Corpuscular Volume 85.3 FL (87-102); Mean Platelet Volume 10.6 FL (9.6-12.0); Monocytes % 12.4 % (1.7-12.7); NRBC # 0.04 10*3/uL; Neutrophils % 61.1 % (38.7-73.9); Platelet Count 332 T/CUMM (130-400); Red Blood Count 3.26 MC/CUMM (3.8-5.5); White Blood Count 8.1 T/CUMM (4-12)
[2021-05-16 05:58] LABS: Calcium 8.6 MG/DL (8.5-10.1); Osmolality,Calculated 289.8 MOS/KG (273-304); Potassium 5.1 MMOL/L (3.5-5.1)
[2021-05-16] MEDS: INSULIN LISPRO 100 UNIT/ML SUBCUT SCH ×8 (07:46→21:43)
[2021-05-16] MEDS: amLODIPine 10 MG TABLET PO SCH ×2 (10:23→10:34)
[2021-05-16] MEDS: carvediloL 25 MG TABLET PO SCH ×2 (10:23→21:41)
[2021-05-16] MEDS: SODIUM BICARBONATE 650 MG TABLET PO SCH ×2 (10:23→21:41)
[2021-05-16] MEDS: DESITIN 4OZ/NYSTATIN 15 GRAM MIXTURE PASTE TOP SCH ×2 (10:24→21:42)
[2021-05-16] MEDS: CHOLESTYRAMINE 4 GM PACK PO SCH ×2 (10:24→21:40)
[2021-05-16] MEDS: MENTHOL/ZINC OXIDE OINT 71 GM JAR TOP SCH ×2 (10:24→21:42)
[2021-05-16] MEDS: PANTOPRAZOLE 40 MG VIAL IV SCH ×2 (10:34→21:40)
[2021-05-16] MEDS: SODIUM CHLORIDE 0.45% 1,000 ML IV SCH ×2 (13:12→18:13)
[2021-05-16 15:06] LABS: H pylori Specimen source STOOL; Helicobacter pylori Result Detected
[2021-05-16] MEDS: ROSUVASTATIN 10 MG TABLET PO SCH (21:41)
[2021-05-16] MEDS: INSULIN GLARGINE 100 UNIT/ML SUBCUT SCH (21:43)
[2021-05-17] MEDS: VANCOMYCIN 50 MG/ML 60 ML/BOTTLE PO SCH ×5 (00:14→23:10)
[2021-05-17] MEDS: DEXTROSE 50% 25 GM/50 ML SYRINGE IV PRN (04:54)
[2021-05-17] MEDS: SODIUM CHLORIDE 0.45% 1,000 ML IV SCH ×2 (05:50→22:18)
[2021-05-17 06:03] LABS: Basophils % 0.4 % (0.0-0.8); Eosinophils # 0.2 10*3/uL (0.0-0.87); Hematocrit 25.8 VOL% (35.7-47.0); Immature Granulocytes % 1.4 %; Immature Granulocytes Absolute 0.11 #; Lymphocytes # 2.4 10*3/uL (1.4-4.0); Lymphocytes % 29.1 % (21.3-54.2); Mean Corpuscular Volume 86.3 FL (87-102); Mean Platelet Volume 10.6 FL (9.6-12.0); NRBC # 0.03 10*3/uL; Neutrophils % 56.1 % (38.7-73.9); Platelet Count 360 T/CUMM (130-400); Red Blood Count 2.99 MC/CUMM (3.8-5.5); Red Cell Distribution Width 17.1 % (9.3-17.3); White Blood Count 8.1 T/CUMM (4-12)
[2021-05-17 06:36] LABS: Band Neutrophils 7 % (0-10); Lymphocytes 33 % (20-55); Platelet Estimate Normal; Segmented Neutrophils 51 % (50-85); Smudge Cells Few; Total Cells Counted 100
[2021-05-17 06:37] LABS: Anisocytosis 2+
[2021-05-17] MEDS: INSULIN LISPRO 100 UNIT/ML SUBCUT SCH ×7 (09:48→22:14)
[2021-05-17] MEDS: amLODIPine 10 MG TABLET PO SCH (09:48)
[2021-05-17] MEDS: carvediloL 25 MG TABLET PO SCH ×2 (09:48→22:12)
[2021-05-17] MEDS: PANTOPRAZOLE 40 MG VIAL IV SCH ×2 (09:48→22:11)
[2021-05-17] MEDS: SODIUM BICARBONATE 650 MG TABLET PO SCH ×2 (09:49→22:11)
[2021-05-17] MEDS: MENTHOL/ZINC OXIDE OINT 71 GM JAR TOP SCH (09:49)
[2021-05-17] MEDS: DESITIN 4OZ/NYSTATIN 15 GRAM MIXTURE PASTE TOP SCH (09:49)
[2021-05-17] MEDS: CHOLESTYRAMINE 4 GM PACK PO SCH (09:49)
[2021-05-17] MEDS: COLESEVELAM 625 MG TABLET PO SCH ×2 (10:52→22:12)
[2021-05-17] MEDS: TRIAMCINOLONE 0.1% CREAM 15 GM TUBE TOP SCH ×2 (12:21→22:14)
[2021-05-17] MEDS: ROSUVASTATIN 10 MG TABLET PO SCH (22:12)
[2021-05-17] MEDS: INSULIN GLARGINE 100 UNIT/ML SUBCUT SCH (22:14)
[2021-05-18] MEDS: VANCOMYCIN 50 MG/ML 60 ML/BOTTLE PO SCH ×3 (05:44→17:35)
[2021-05-18] MEDS: amLODIPine 10 MG TABLET PO SCH (09:41)
[2021-05-18] MEDS: carvediloL 25 MG TABLET PO SCH ×2 (09:41→22:36)
[2021-05-18] MEDS: PANTOPRAZOLE 40 MG VIAL IV SCH ×2 (09:42→22:29)
[2021-05-18] MEDS: INSULIN LISPRO 100 UNIT/ML SUBCUT SCH ×7 (09:42→22:25)
[2021-05-18] MEDS: TRIAMCINOLONE 0.1% CREAM 15 GM TUBE TOP SCH ×2 (09:43→22:28)
[2021-05-18] MEDS: COLESEVELAM 625 MG TABLET PO SCH ×2 (09:43→22:26)
[2021-05-18] MEDS: SODIUM BICARBONATE 650 MG TABLET PO SCH ×2 (09:43→22:26)
[2021-05-18] MEDS: SODIUM CHLORIDE 0.45% 1,000 ML IV SCH ×3 (09:43→22:30)
[2021-05-18 19:36] LABS: CDT Result Negative (Negative); CDT Specimen Source STOOL
[2021-05-18] MEDS: ROSUVASTATIN 10 MG TABLET PO SCH (22:26)
[2021-05-18] MEDS: INSULIN GLARGINE 100 UNIT/ML SUBCUT SCH (22:28)
[2021-05-19] MEDS: VANCOMYCIN 50 MG/ML 60 ML/BOTTLE PO SCH ×2 (04:04→05:59)
[2021-05-19 05:25] LABS: Basophils % 0.2 % (0.0-0.8); Eosinophils # 0.1 10*3/uL (0.0-0.87); Hematocrit 25.9 VOL% (35.7-47.0); Hemoglobin 7.8 GM/DL (12.0-16.0); Immature Granulocytes % 1.5 %; Lymphocytes # 2.4 10*3/uL (1.4-4.0); Lymphocytes % 18.1 % (21.3-54.2); Mean Corpuscular HGB Conc 30.1 GM/DL (32-36); Mean Corpuscular Volume 87.2 FL (87-102); Mean Platelet Volume 10.4 FL (9.6-12.0); Monocytes % 6.4 % (1.7-12.7); NRBC # 0.04 10*3/uL; Neutrophils % 72.8 % (38.7-73.9); Platelet Count 415 T/CUMM (130-400); Red Blood Count 2.97 MC/CUMM (3.8-5.5); Red Cell Distribution Width 16.8 % (9.3-17.3); White Blood Count 13.3 T/CUMM (4-12)
[2021-05-19 05:45] LABS: Calcium 8.5 MG/DL (8.5-10.1); Osmolality,Calculated 289.4 MOS/KG (273-304); Potassium 4.4 MMOL/L (3.5-5.1)
[2021-05-19] MEDS ORDERED: diphenhydrAMINE 25 MG/10 ML UDCUP PO ONE (09:00)
[2021-05-19] MEDS: SODIUM BICARBONATE 650 MG TABLET PO SCH ×2 (09:21→20:51)
[2021-05-19] MEDS: COLESEVELAM 625 MG TABLET PO SCH ×2 (09:21→22:45)
[2021-05-19] MEDS: carvediloL 25 MG TABLET PO SCH ×2 (09:21→20:51)
[2021-05-19] MEDS: amLODIPine 10 MG TABLET PO SCH (09:21)
[2021-05-19] MEDS: PANTOPRAZOLE 40 MG VIAL IV SCH ×2 (09:22→20:52)
[2021-05-19] MEDS: INSULIN LISPRO 100 UNIT/ML SUBCUT SCH ×7 (09:25→20:53)
[2021-05-19] MEDS: TRIAMCINOLONE 0.1% CREAM 15 GM TUBE TOP SCH ×2 (09:25→20:53)
[2021-05-19] MEDS: SODIUM CHLORIDE 0.45% 1,000 ML IV SCH (13:30)
[2021-05-19] MEDS: ACETAMINOPHEN 325 MG TABLET PO PRN (14:51)
[2021-05-19] MEDS: INSULIN GLARGINE 100 UNIT/ML SUBCUT SCH (20:51)
[2021-05-19] MEDS: ROSUVASTATIN 10 MG TABLET PO SCH (20:51)
[2021-05-19] MEDS: DEXTROSE 50% 25 GM/50 ML SYRINGE IV PRN (22:44)
[2021-05-20] MEDS: DEXTROSE 5% NACL 0.45% 1,000 ML IV SCH ×2 (00:56→15:54)
[2021-05-20] MEDS: SODIUM CHLORIDE 0.45% 1,000 ML IV SCH (01:20)
[2021-05-20 05:39] LABS: Basophils % 0.3 % (0.0-0.8); Eosinophils # 0.2 10*3/uL (0.0-0.87); Eosinophils % 1.5 % (0.00-10.9); Hematocrit 25.4 VOL% (35.7-47.0); Hemoglobin 7.9 GM/DL (12.0-16.0); Immature Granulocytes % 1.7 %; Immature Granulocytes Absolute 0.25 #; Lymphocytes # 2.5 10*3/uL (1.4-4.0); Lymphocytes % 16.5 % (21.3-54.2); Mean Corpuscular HGB Conc 31.1 GM/DL (32-36); Mean Corpuscular Volume 86.7 FL (87-102); Mean Platelet Volume 9.9 FL (9.6-12.0); Monocytes % 6.5 % (1.7-12.7); NRBC # 0.03 10*3/uL; Neutrophils % 73.5 % (38.7-73.9); Platelet Count 422 T/CUMM (130-400); Red Blood Count 2.93 MC/CUMM (3.8-5.5); Red Cell Distribution Width 16.9 % (9.3-17.3); White Blood Count 15.1 T/CUMM (4-12)
[2021-05-20 05:56] LABS: Calcium 8.6 MG/DL (8.5-10.1); Osmolality,Calculated 286.3 MOS/KG (273-304); Potassium 4.9 MMOL/L (3.5-5.1)
[2021-05-20] MEDS: INSULIN LISPRO 100 UNIT/ML SUBCUT SCH ×4 (07:18→12:49)
[2021-05-20] MEDS: PANTOPRAZOLE 40 MG VIAL IV SCH (08:24)
[2021-05-20] MEDS: amLODIPine 10 MG TABLET PO SCH (08:25)
[2021-05-20] MEDS: TRIAMCINOLONE 0.1% CREAM 15 GM TUBE TOP SCH (08:25)
[2021-05-20] MEDS: SODIUM BICARBONATE 650 MG TABLET PO SCH (08:25)
[2021-05-20] MEDS: carvediloL 25 MG TABLET PO SCH (08:25)
[2021-05-20] MEDS: COLESEVELAM 625 MG TABLET PO SCH (10:21)
[2021-05-20] MEDS ORDERED: VANCOMYCIN 50 MG/ML 60 ML/BOTTLE PO SCH (12:00)
[2021-05-20 16:19] VITALS: BP 128/87
[2021-05-20] MEDS ORDERED: INSULIN GLARGINE 100 UNIT/ML SUBCUT SCH (21:00)
== END 2021-05-20 16:55 | disposition swing bed (61) | DRG 638 ==
LOC: EDSEX → EDBD → EDUNIT# → N.ED 17:14 → N.EDINP 22:10 → SUATTDRO 22:10 → N.CC 05-09 01:03 → N.TELES 05-09 14:25 → N.3E 05-14 06:54
PROVIDERS: ADMIT Internal Medicine; ATTEND Internal Medicine